=== PATIENT | female | born 1950 | race Caucasian/White ===

== ENCOUNTER 2020-12-02 10:01 | Outpatient (REF) | payer MEDICARE, SELFPAY ==
[2020-12-02 12:27] LABS: Urine Cytology See Pathology rpt
== END 2020-12-02 10:02 | disposition home or self-care (01) ==
LOC: HO.LNP 10:01
PROVIDERS: Visit Provider Urology
DX: C67.9 Malignant neoplasm of bladder, unspecified (principal)
CPT/HCPCS: 52000; 88112; 99212

== ENCOUNTER 2021-01-26 08:33 | Outpatient (REF) | payer MEDICARE, SELFPAY ==
--- NOTE | ~2021-01-26 | MM_ITS ---
EXAMINATION: BONE DENSITOMETRY CLINICAL INDICATION: Menopause. COMPARISON: Previous BD dated 12/18/2017 and baseline BD dated 03/06/2008. TECHNIQUE: Using a [employer] DXA System (software version: 13.1) manufactured by [facility] [facility], dual-energy x-ray absorptiometry was performed of the lumbar spine and left hip. The images are of good technical quality. Summary results are attached. FINDINGS: AP SPINE L1-L4: Current: BMD 0.995 g/cm2, Z-score 0.0, T-score -1.5, osteopenia, 1.5% decrease from previous, 5.6% increase from baseline (<5% change is not significant). Prior: BMD 1.010 g/cm2. Baseline: BMD 0.942 g/cm2. LEFT FEMUR, NECK: Current: BMD 0.699 g/cm2, Z-score -0.8, T-score -2.4, osteopenia. Prior: BMD 0.747 g/cm2. Baseline: BMD 0.785 g/cm2. LEFT FEMUR, TOTAL: Current: BMD 0.805 g/cm2, Z-score -0.2, T-score -1.6, osteopenia, 5.3% decrease from previous, 11.2% decrease from baseline (<5% change is not significant). Prior: BMD 0.850 g/cm2. Baseline: BMD 0.907 g/cm2. IDENTIFIED RISK FACTORS: Menopause. HISTORY OF FRACTURE: None listed. MEDICATIONS: Vitamin D. MM/XR DEXA axial skeleton IMPRESSION: 1. DIAGNOSIS: Osteopenia based on the lowest T-score value of -2.4 in the femoral neck applying World Health Organization criteria. 2. 10-YEAR FRACTURE RISK PREDICTION, FRAX: Major osteoporotic fracture (clinical spine, forearm, hip or shoulder) 14.0%. Hip fracture 3.5%. 3. Treatment Recommendations: NOF guidelines recommend consideration for treatment in postmenopausal women and men age 50 and older presenting with the following: -A hip or vertebral (clinical or morphometric) fracture. -T-score less than or equal to -2.5 at the femoral neck or spine after appropriate evaluation to exclude secondary causes. -Low bone mass at the hip or spine and a 10-year fracture probability by FRAX of greater than or equal to 3% for hip fracture or greater than or equal to 20% for major osteoporotic fracture based on the [place] adapted WHO algorithm. 4. Other Recommendations: All treatment decisions require clinical judgment and consideration of individual patient factors, including patient preferences, comorbidities, previous drug use, risk factors not captured in the FRAX model (e.g. frailty, falls, vitamin D deficiency, increased bone turnover, interval significant decline in bone density) and possible under or overestimation of fracture risk by FRAX. Additional medical evaluation for secondary cause of low bone mineral density may be appropriate. FUTURE SCAN RECOMMENDATION: People with diagnosed cases of osteoporosis or at high risk for fracture should have regular bone mineral density tests. For patients eligible for Medicare, routine testing is allowed once every 2 years. The testing frequency can be increased to one year for patients who have rapidly progressing disease, those who are receiving or discontinuing medical therapy to restore bone mass, or have additional risk factors.
--- NOTE | ~2021-01-26 | MM_ITS ---
EXAMINATION: MM SCREENING DIGITAL BREAST TOMOSYNTHESIS, BILATERAL CLINICAL INFORMATION: Screening. Asymptomatic. The lifetime risk of breast cancer based on the Tyrer-Cuzick Model is 3%. COMPARISON: Mammography: 01/12/2020, 01/03/2019, 12/18/2017 TECHNIQUE: Digital breast tomosynthesis is performed in both the craniocaudal and mediolateral oblique views along with computer-aided detection (CAD). Synthesized 2D images are generated from the tomosynthesis. FINDINGS: There are scattered areas of fibroglandular density (ACR BI-RADS breast composition Category b). There are no significant masses, abnormal calcifications, or other abnormalities. The axilla and skin contours are unremarkable. No significant changes. MM/MM tomosynthesis screening BI IMPRESSION: No mammographic evidence of malignancy. ASSESSMENT: BI-RADS 1: Negative RECOMMENDATION: Routine annual mammography screening. This patient's information was entered into a reminder system with a target due date for their next mammogram.
[2021-01-26 09:52] LABS: MANUAL DIFF FLAG NO
[2021-01-26 10:19] LABS: Estimated Average Glucose 197 mg/dL; Hemoglobin A1c % 8.5 %
[2021-01-26 10:24] LABS: Basophils Absolute Auto 0.1 X10*3/uL (0.0-0.2); Basophils Percent Auto 0.7 % (0-2); Eosinophils Absolute Auto 0.2 X10*3/uL (0.0-0.4); Eosinophils Percent Auto 2.5 % (0-4); Hematocrit 43.1 % (37-47); Hemoglobin 13.8 g/dl (12.0-16.0); Imm Gran Abs Auto 0.04 X10*3/uL (0.00-0.03); Imm Gran Pct Auto 0.4 % (0.0-0.4); Lymphocytes Percent Auto 20.6 % (20-40); Mean Corpuscular Hemoglobin 29.6 pg (27.0-33.0); Mean Corpuscular Volume 92.3 fL (80-98); Mean Platelet Volume 10.7 fL (9.4-12.3); Monocytes Absolute Auto 0.7 X10*3/uL (0.1-1.2); Monocytes Percent Auto 7.7 % (2-11); Neutrophils Absolute Auto 6.6 X10*3/uL (2.0-8.3); Neutrophils Percent Auto 68.1 % (45-73); Platelet Count 280 X10*3/uL (160-400); Red Blood Count 4.67 X10*6/uL (4.20-5.50); Red Cell Distribution Width 13.6 % (11.0-16.0); White Blood Count 9.7 X10*3/uL (4.8-10.8)
[2021-01-26 10:53] LABS: Microalbum/Creatinine Ratio Ur 9.6 ug/mg cr
[2021-01-26 11:09] LABS: Alanine Aminotransferase 15 U/L (0-31); Albumin Level 3.9 g/dL (3.5-5.0); Alkaline Phosphatase 58 U/L (39-117); Anion Gap 11 (12-20); Aspartate Amino Transferase 16 U/L (5-31); Bilirubin Total 0.5 mg/dL (0.0-1.0); Blood Urea Nitrogen 14 mg/dL (9-16); Calcium 9.3 mg/dL (8.4-10.2); Carbon Dioxide 28 mmol/L (22-29); Chloride 104 mmol/L (96-108); Cholesterol 167 mg/dL; Estimated Glomerular Filt Rate > 60; Glucose Random 220 mg/dL (60-115); HDL Cholesterol 56 mg/dL; LDL Cholesterol Calculated 102 mg/dl; Potassium 4.3 mmol/L (3.3-5.1); Sodium 139 mmol/L (135-145); Total Protein 7.2 g/dL (6.5-8.0); Triglycerides 49 mg/dL
[2021-01-26 11:13] LABS: Vitamin D 25-OH Total 44.3 ng/mL (>30)
== END 2021-01-26 08:34 | disposition home or self-care (01) ==
LOC: HO.MAMMO 08:33
PROVIDERS: PCP Internal Medicine; Visit Provider Internal Medicine
DX: M81.0 Age-related osteoporosis without current pathological fracture (principal); Z78.0 Asymptomatic menopausal state; Z12.31 Encounter for screening mammogram for malignant neoplasm of breast; I10 Essential (primary) hypertension; E11.9 Type 2 diabetes mellitus without complications
CPT/HCPCS: 36415; 77063; 77067; 77080; 80053; 80061; 82043; 82306; 83036; 85025

== ENCOUNTER 2021-03-16 11:27 | Outpatient (REF) | payer MEDICARE, SELFPAY ==
--- NOTE | ~2021-03-16 | XR_ITS ---
EXAMINATION: XR HIP, LEFT CLINICAL INFORMATION: Left hip pain. Question presence of osteoarthritis. COMPARISON: None TECHNIQUE: Two views of the left hip. FINDINGS: The left-sided pelvic bones are intact. The left femoral head is well-positioned within the intact acetabulum. The hip joint space is normal. No arthritic deformity. No fracture or subluxation. Soft tissues are unremarkable. Small osteophytes are noted at the mildly degenerated pubic symphysis and inferior left sacroiliac joint. XR/XR hip LT min 2V IMPRESSION: * Normal left hip. 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
== END 2021-03-16 11:28 | disposition home or self-care (01) ==
LOC: HO.XRAY 11:27
PROVIDERS: PCP Internal Medicine; Visit Provider Internal Medicine
DX: M25.552 Pain in left hip (principal)
CPT/HCPCS: 73502

== ENCOUNTER 2021-07-13 11:10 | Outpatient (REF) | payer MEDICARE, SELFPAY ==
[2021-07-13 14:13] LABS: Estimated Average Glucose 192 mg/dL; Hemoglobin A1c % 8.3 %
[2021-07-13 14:17] LABS: Anion Gap 12 (12-20); Blood Urea Nitrogen 18 mg/dL (9-16); Carbon Dioxide 29 mmol/L (22-29); Chloride 100 mmol/L (96-108); Creatinine Urine 114.05 mg/dL; Estimated Glomerular Filt Rate > 60; Glucose Random 316 mg/dL (60-115); Microalbum/Creatinine Ratio Ur 6.1 ug/mg cr; Potassium 4.4 mmol/L (3.3-5.1); Sodium 137 mmol/L (135-145)
[2021-07-13 14:19] LABS: Calcium 9.8 mg/dL (8.4-10.2)
== END 2021-07-13 11:11 | disposition home or self-care (01) ==
LOC: HO.10HDL 11:10
PROVIDERS: PCP Internal Medicine; Visit Provider Internal Medicine
DX: I10 Essential (primary) hypertension (principal); E11.9 Type 2 diabetes mellitus without complications
CPT/HCPCS: 36415; 80048; 82043; 83036

== ENCOUNTER 2021-07-26 10:28 | Outpatient (REF) | payer MEDICARE, SELFPAY ==
--- NOTE | 2021-07-26 13:56 | MHC.AU.ANR ---
Adult Audiological Evaluation Date of Visit: 07/26/21 Reason for Appointment: Varsha was seen for an audiological evaluation to address concerns of decreased hearing. Varsha states she came today due to complaints from her children stating she needed her hearing checked. Varsha feels she hears well, but does note a bilateral, constant tinnitus that is more noticeable in quiet environments. Varsha notes having difficulties hearing one of her grandchildren, who talks fast, and having difficulties hearing only one character on her favorite TV show. Does patient feel they have a hearing loss?: No Hearing Handicap Inventory: HHIE SCORE: 4 Based on HHIE score, patient has: No perceived hearing handicap Ear History: Family History of Hearing Loss?: Yes: Father wore hearing aids Bothersome Tinnitus/Ringing/Noises in Ears: Both Ears Ear used on the phone: Right Ear Medical History: Medical History: Cancer, Diabetes, Heart Problems, High Blood Pressure Medical History (Other): History of bladder cancer which was surgically treated and monitored regularly. Rheumatic fever at 7 years old. Asthma. Allergies: NKA Medication List: Glupizide, Lisinopril, lovastatin, buclesonide with formoterol, vitamin D, Advil, Plexus Otoscopy: Right Ear: Unremarkable Left Ear: Unremarkable Tympanometry: Tympanometry performed due to: To assess integrity of the middle ear system Right Ear: Normal Middle Ear System (Type A) Left Ear: Normal Middle Ear System (Type A) Hearing Evaluation: Transducer(s) Used: Insert Earphones, Bone Conduction Method: Conventional Audiometry Stimuli Used: Pure Tones Right Ear: Description of Hearing: Normal hearing threshold at 250 Hz sloping to a mild sensorineural hearing loss through 2000 Hz, rising to normal at 3000 Hz, sloping back down to a moderately severe sensorineural hearing loss through 8000 Hz. Left Ear: Description of Hearing: Normal hearing thresholds at 250 Hz sloping to a mild sensorineural hearing loss through 1000 Hz, rising to normal from 3062-8135 Hz, sloping back down to a moderately severe sensorineural hearing loss through 8000 Hz. Speech Recognition Threshold (SRT): Method Used: Monitored Live Voice Stimuli Used: Spondee Words Right Ear: 30 dB HL Left Ear: 30 dB HL Word Discrimination: Method: Recorded Lists Word Lists Used: NU-6 Right Ear: 100% at 75 dB HL Left Ear: 100% at 75 dB HL Interpretation of Results: Overall mild to moderately severe sensorineural hearing loss with excellent word recognition when presented at a level to compensate for the hearing loss. Normal middle ear status. Hearing loss of this degree would most likely impact her ability to understand speech in the presence of background noise, speech at a distance, or when she cannot visualize a speaker's face. Recommendations: Audiological re-evaluation in one year. Trial with amplification is recommended. Patient does not feel they are ready for amplification at this time. Due to the significant, bilateral hearing loss, it is recommended that Varsha pursue hearing devices. Counseled on the benefits of hearing aids, including, hearing her grandchildren more clearly and a possible reduction in tinnitus while wearing the devices. Discussed possible diet and environmental modifications to manage tinnitus as well. If Varsha decides to pursue amplification, she should call her insurance to determine if a hearing aid benefit is available to her. At this time, Varsha stated she will not be pursing amplification due to lack of perceived difficulties surrounding her hearing abilities. Recommended to return in one year to monitor the status of her hearing loss. Diagnosis: Primary Diagnosis: H90.3 Bilateral Sensorineural Hearing Loss Secondary Diagnosis: H93.13 Tinnitus, Bilateral Services Performed: Services Performed: Comprehensive Audiological Evaluation (CPT 09899) Tympanometry (CPT 96221) Signature: Student/Clinical Fellow: Yes: Marla Robins B.A., [employer] I have reviewed/agreed with student/fellow documentation: Yes Provider: Toya Hebert, [facility]
== END 2021-07-26 10:29 | disposition home or self-care (01) ==
LOC: HO.SH 10:28
PROVIDERS: Visit Provider Internal Medicine
DX: Z01.118 Encounter for examination of ears and hearing with other abnormal findings (principal); H90.3 Sensorineural hearing loss, bilateral
CPT/HCPCS: 92557; 92567

== ENCOUNTER 2021-10-12 11:04 | Outpatient (REF) | payer MEDICARE, SELFPAY ==
[2021-10-12 14:11] LABS: Anion Gap 11 (12-20); Blood Urea Nitrogen 24 mg/dL (9-16); Calcium 9.5 mg/dL (8.4-10.2); Carbon Dioxide 28 mmol/L (22-29); Chloride 101 mmol/L (96-108); Estimated Glomerular Filt Rate 59; Glucose Random 215 mg/dL (60-115); Potassium 4.6 mmol/L (3.3-5.1); Sodium 135 mmol/L (135-145)
[2021-10-12 14:39] LABS: Estimated Average Glucose 197 mg/dL; Hemoglobin A1c % 8.5 %
== END 2021-10-12 11:05 | disposition home or self-care (01) ==
LOC: HO.10HDL 11:04
PROVIDERS: Visit Provider Internal Medicine
DX: E11.9 Type 2 diabetes mellitus without complications (principal); I10 Essential (primary) hypertension
CPT/HCPCS: 36415; 80048; 83036

== ENCOUNTER 2021-12-02 10:02 | Outpatient (REF) | payer MEDICARE, SELFPAY ==
[2021-12-02 15:58] LABS: Urine Cytology See Pathology rpt
== END 2021-12-02 10:03 | disposition home or self-care (01) ==
LOC: HO.LAB 10:02
PROVIDERS: Visit Provider Urology
DX: C67.9 Malignant neoplasm of bladder, unspecified (principal)
CPT/HCPCS: 52000; 88112; 99212

== ENCOUNTER 2022-01-27 09:41 | Outpatient (REF) | payer MEDICARE, SELFPAY ==
[2022-01-27 10:53] LABS: MANUAL DIFF FLAG NO
[2022-01-27 10:55] LABS: Basophils Absolute Auto 0.1 X10*3/uL (0.0-0.2); Eosinophils Absolute Auto 0.3 X10*3/uL (0.0-0.4); Eosinophils Percent Auto 3.8 % (0-4); Hematocrit 41.8 % (37.0-47.0); Hemoglobin 13.6 g/dl (12.0-16.0); Imm Gran Abs Auto 0.02 X10*3/uL (0.00-0.03); Imm Gran Pct Auto 0.3 % (0.0-0.4); Lymphocytes Absolute Auto 2.1 X10*3/uL (1.2-4.9); Lymphocytes Percent Auto 29.8 % (20-40); Mean Corpuscular HGB Conc 32.5 g/dl (31.0-35.0); Mean Corpuscular Hemoglobin 30.1 pg (27.0-33.0); Mean Corpuscular Volume 92.5 fL (80.0-98.0); Mean Platelet Volume 10.4 fL (9.4-12.3); Monocytes Absolute Auto 0.7 X10*3/uL (0.1-1.2); Monocytes Percent Auto 9.5 % (2-11); Neutrophils Percent Auto 55.6 % (45-73); Platelet Count 273 X10*3/uL (160-400); Red Blood Count 4.52 X10*6/uL (4.20-5.50); Red Cell Distribution Width 14.4 % (11.0-16.0); White Blood Count 7.2 X10*3/uL (4.8-10.8)
[2022-01-27 11:03] LABS: Alanine Aminotransferase 19 U/L (0-31); Alkaline Phosphatase 53 U/L (39-117); Anion Gap 15 (12-20); Aspartate Amino Transferase 19 U/L (5-31); Bilirubin Total 0.5 mg/dL (0.0-1.0); Blood Urea Nitrogen 15 mg/dL (9-16); Calcium 9.4 mg/dL (8.4-10.2); Carbon Dioxide 26 mmol/L (22-29); Chloride 102 mmol/L (96-108); Cholesterol 160 mg/dL; Estimated Glomerular Filt Rate > 60; Glucose Fasting 227 mg/dL (60-99); HDL Cholesterol 55 mg/dL; LDL Cholesterol Calculated 91 mg/dl; Potassium 4.1 mmol/L (3.3-5.1); Sodium 139 mmol/L (135-145); Total Protein 7.2 g/dL (6.5-8.0); Triglycerides 71 mg/dL
[2022-01-27 11:08] LABS: Estimated Average Glucose 194 mg/dL; Hemoglobin A1c % 8.4 %
[2022-01-27 11:48] LABS: Creatinine Urine 217.14 mg/dL; Microalbum/Creatinine Ratio Ur 8.7 ug/mg cr
== END 2022-01-27 09:42 | disposition home or self-care (01) ==
LOC: HO.10HDL 09:41
PROVIDERS: Visit Provider Internal Medicine
DX: E11.9 Type 2 diabetes mellitus without complications (principal); I10 Essential (primary) hypertension; E78.00 Pure hypercholesterolemia, unspecified
CPT/HCPCS: 36415; 80053; 80061; 82043; 83036; 85025

== ENCOUNTER 2022-01-27 10:18 | Outpatient (REF) | payer MEDICARE, SELFPAY ==
--- NOTE | ~2022-01-27 | MM_ITS ---
EXAMINATION: MM SCREENING DIGITAL BREAST TOMOSYNTHESIS, BILATERAL CLINICAL INFORMATION: Screening. Asymptomatic. The lifetime risk of breast cancer based on the Tyrer-Cuzick Model is 3%. COMPARISON: Mammography: 01/26/2021, 01/12/2020, 01/03/2019 TECHNIQUE: Digital breast tomosynthesis is performed in both the craniocaudal and mediolateral oblique views along with computer-aided detection (CAD). Synthesized 2D images are generated from the tomosynthesis. FINDINGS: There are scattered areas of fibroglandular density (ACR BI-RADS breast composition Category b). There are no significant masses, abnormal calcifications, or other abnormalities. Parenchymal pattern is similar to prior studies. There is no developing density or architectural abnormality. The axilla and skin contours are unremarkable. No significant changes. MM/MM tomosynthesis screening BI IMPRESSION: No mammographic evidence of malignancy. ASSESSMENT: BI-RADS 1: Negative RECOMMENDATION: Routine annual mammography screening. This patient's information was entered into a reminder system with a target due date for their next mammogram.
== END 2022-01-27 10:19 | disposition home or self-care (01) ==
LOC: HO.MAMMO 10:18
PROVIDERS: PCP Internal Medicine; Visit Provider Internal Medicine
DX: Z12.31 Encounter for screening mammogram for malignant neoplasm of breast (principal)
CPT/HCPCS: 77063; 77067

== ENCOUNTER 2022-05-10 11:19 | Outpatient (REF) | payer MEDICARE, SELFPAY ==
[2022-05-10 14:33] LABS: Anion Gap 13 (12-20); Blood Urea Nitrogen 20 mg/dL (9-16); Calcium 9.7 mg/dL (8.4-10.2); Carbon Dioxide 29 mmol/L (22-29); Chloride 99 mmol/L (96-108); Estimated Glomerular Filt Rate > 60; Glucose Random 240 mg/dL (60-115); Potassium 4.4 mmol/L (3.3-5.1); Sodium 137 mmol/L (135-145)
[2022-05-10 14:36] LABS: Estimated Average Glucose 197 mg/dL; Hemoglobin A1c % 8.5 %
== END 2022-05-10 11:20 | disposition home or self-care (01) ==
LOC: HO.10HDL 11:19
PROVIDERS: Visit Provider Internal Medicine
DX: E11.9 Type 2 diabetes mellitus without complications (principal); I10 Essential (primary) hypertension
CPT/HCPCS: 36415; 80048; 83036

== ENCOUNTER 2022-08-09 12:16 | Outpatient (REF) | payer MEDICARE, SELFPAY ==
[2022-08-09 14:37] LABS: Anion Gap 11 (12-20); Blood Urea Nitrogen 16 mg/dL (9-16); Calcium 9.4 mg/dL (8.4-10.2); Carbon Dioxide 28 mmol/L (22-29); Chloride 103 mmol/L (96-108); Estimated Glomerular Filt Rate > 60; Glucose Random 228 mg/dL (60-115); Potassium 4.4 mmol/L (3.3-5.1); Sodium 138 mmol/L (135-145)
[2022-08-09 14:41] LABS: Estimated Average Glucose 249 mg/dL; Hemoglobin A1c % 10.3 %
== END 2022-08-09 12:17 | disposition home or self-care (01) ==
LOC: HO.10HDL 12:16
PROVIDERS: Visit Provider Internal Medicine
DX: E11.9 Type 2 diabetes mellitus without complications (principal); I10 Essential (primary) hypertension
CPT/HCPCS: 36415; 80048; 83036

== ENCOUNTER 2022-11-22 10:51 | Outpatient (REF) | payer MEDICARE, SELFPAY ==
[2022-11-22 13:51] LABS: Estimated Average Glucose 183 mg/dL
[2022-11-22 13:59] LABS: Alanine Aminotransferase 15 U/L (0-31); Alkaline Phosphatase 56 U/L (39-117); Anion Gap 11 (12-20); Aspartate Amino Transferase 18 U/L (5-31); Bilirubin Total 0.5 mg/dL (0.0-1.0); Blood Urea Nitrogen 23 mg/dL (9-16); Calcium 9.8 mg/dL (8.4-10.2); Carbon Dioxide 31 mmol/L (22-29); Chloride 101 mmol/L (96-108); Estimated Glomerular Filt Rate > 60; Glucose Random 213 mg/dL (60-115); Potassium 4.3 mmol/L (3.3-5.1); Sodium 139 mmol/L (135-145)
== END 2022-11-22 10:52 | disposition home or self-care (01) ==
LOC: HO.10HDL 10:51
PROVIDERS: Visit Provider Internal Medicine
DX: E11.9 Type 2 diabetes mellitus without complications (principal); I10 Essential (primary) hypertension; J45.909 Unspecified asthma, uncomplicated
CPT/HCPCS: 36415; 80053; 83036

== ENCOUNTER 2022-12-05 10:10 | Outpatient (REF) | payer MEDICARE, SELFPAY ==
[2022-12-05 17:08] LABS: Urine Cytology See Pathology rpt
== END 2022-12-05 10:11 | disposition home or self-care (01) ==
LOC: HO.LAB 10:10
PROVIDERS: Visit Provider Urology
DX: C67.9 Malignant neoplasm of bladder, unspecified (principal); R35.1 Nocturia; N32.81 Overactive bladder
CPT/HCPCS: 52000; 88112; 99212

== ENCOUNTER 2022-12-05 10:10 | Outpatient (AMB) | payer MEDICARE, SELFPAY ==
--- NOTE | 2022-12-05 10:13 | A.OFFVIS_ITS ---
Intake Intake Visit Reasons: 1 year follow up Cysto Intake Note: Patient is present for Cystoscopy Urology Med: None Antibiotic Allergy: None Blood Thinner: None [facility]acy: [facility] C[facility] used during Procedure LOT#: [id number] EXP: 09/01/2024 Allergies No Known Allergies Allergy (Verified 12/05/22 10:15) HPI HPI Comments History of Present Illness Details Varsha is a pleasant female. She is here for the following urologic conditions - bladder cancer - lower urinary tract symptoms Cystoscopy clear 12 month follow-up Lower urinary tract symptoms Predominate urinary urgency Background of diabetes Nocturia times 3-4 Trial oxybutynin Bladder cancer superficial Diagnosed a number of years ago Continues with yearly surveillance Background with diabetic diagnosis on glipizide Cystoscopy - 12/18 NAD, 12/19 NAD, 12/20 NAD Continue with surveillance yearly [facility] Medical History (Updated 12/05/22 @ 11:05 by Forest Clark MD) Asthma Diabetes mellitus HTN (hypertension) Surgical History (Updated 12/05/22 @ 10:18 by DOROTA Null) Status post surgical removal and fulguration of bladder neoplasm Review of Systems Const Denies chills and Denies fever(s) Card Reports no additional complaints and Denies syncope Resp Denies cough GI Denies abdominal pain and Denies heartburn Reports as per HPI and Denies change in libido Neuro Denies syncope Psych Denies change in libido Endo Denies change in libido Physical Exam Const General: cooperative, healthy appearing, comfortable and no acute distress Orientation/consciousness: patient oriented x3 HEENT Face and sinus: Yes normal facial exam Mouth: moist mucous membranes Neck Neck: Yes normal visual inspection, Yes full ROM and Yes trachea midline Chest Chest palpation & inspection: normal inspection of the chest Resp Effort & Inspection: normal respiratory effort, able to speak in complete sentences and no respiratory distress GI Inspection: Yes normal to inspection Back/Spine/Pelvis Cervical Spine: normal cervical lordosis Thoracic/Lumbar Spine: thoracic and lumbar spine normal to inspection Skin General skin exam: no rashes or lesions noted Neuro General: patient oriented x3, gait normal, tone normal and moves all extremities Extrem General: Yes normal to inspection and Yes capillary refill normal Office Procedures Cystoscopy Consent Discussed risk and benefit or proposed procedure with the patient. Information consent for procedure given to the patient. Discussed technical aspects, risks, benefits and alternatives in full. Addressed all of the patient's questions and concerns regarding the procedure. The patient demonstrated knowledge and understanding. They wish to proceed with this procedure. Preparation The patient was prepped in the usual manner. A wood carving lathe operator was present and in the room. Genitalia was prepped with betadine solution in a sterile manner. Lidocaine Jelly 2% was placed into the urethra and 16Fr flexible Olympus cystoscope was inserted into the meatus after adequate lubrication. Procedure Meatus atrophic Urethra normal Bladder examination with retroflexion of cystoscope Bladder Orifices normal shape and position Trigone normal Bladder Capacity medium Trabeculations grade 1 Cellule Formation - Diverticulum Formation - Mucosal Erythema - Bladder Tumor - 98580-[id number] Procedure code (CPT) selection complete Office Meds lidocaine HCl Performing Provider: Forest Clark MD Administered by: Charis Raygoza RN on 12/05/22 10:40 Dose Route Admin Location Lot Number Expiration Date [facility] Pastry Mixer 10 mL intra-urethral nitrofurantoin monohyd/m-cryst 100 mg Performing Provider: Forest Clark MD Administered by: Charis Raygoza RN on 12/05/22 10:40 Dose Route Admin Location Lot Number Expiration Date [facility] Pastry Mixer 100 mg PO Results AMB Urinalysis, Automated UA Leukoctes 0 Reena/uL Last Edit by DOROTA Null on 12/05/22 10:22 UA Nitrite Negative Last Edit by Marla Casanova [facility] on 12/05/22 10:22 UA Urobilinogen 0.2 mg/dL Last Edit by Marla Casanova [facility] on 12/05/22 10:2 2 UA Protein 15 mg/dL Last Edit by Marla Casanova [facility] on 12/05/22 10:22 UA pH 6.0 Last Edit by Marla Casanova [facility] on 12/05/22 10:22 UA Blood 0 Ric/uL Last Edit by Marla Casanova [facility] on 12/05/22 10:22 UA Specific [place] 1.030 Last Edit by Marla Casanova [facility] on 12/05/22 10: 22 UA Ketone Negative Last Edit by Marla Casanova [facility] on 12/05/22 10:22 UA Bilirubin 0 mg/dL Last Edit by Marla Casanova [facility] on 12/05/22 10:22 UA Glucose 0 mg/dL Last Edit by DOROTA Null on 12/05/22 10:22 Results Reviewed Results Reviewed: Laboratory Last Values Urine pH (Auto) 6.0 12/05/22 10:18 Specific [place] (Auto) 1.030 12/05/22 10:18 Urine Protein (Auto) 15 mg/dL 12/05/22 10:18 Glucose (UA)(Auto) 0 mg/dL 12/05/22 10:18 Urine Ketones (Auto) Negative 12/05/22 10:18 Urine Blood (Auto) 0 Ric/uL 12/05/22 10:18 Urine Nitrite (Auto) Negative 12/05/22 10:18 Urine Bilirubin (Auto) 0 mg/dL 12/05/22 10:18 Urine Urobilinogen (Auto) 0.2 mg/dL 12/05/22 10:18 Leukocyte Esterase (Auto) 0 Reena/uL 12/05/22 10:18 Assessment & Plan Assessment & Plan (1) Bladder cancer: Comment: Low-grade Code(s): C67.9 - Malignant neoplasm of bladder, unspecified (2) Overactive bladder: Code(s): N32.81 - Overactive bladder Orders: Orders Urine Cytology Today C67.9 - Malignant neoplasm of bladder, unspecified AMB Cystoscopy Today C67.9 - Malignant neoplasm of bladder, unspecified AMB Urinalysis Automated Today Z13.9 - Encounter for screening, unspecified Medications: New oxybutynin chloride ER 5 mg PO DAILY 30 days 30 tabs 1RF C67.9 - Malignant neoplasm of bladder, unspecified Coding Level of Care Code Est Pt Level 4 (32668) Diagnoses Bladder cancer C67.9 Overactive bladder N32.81 CPT Codes Cystoscopy - CPT: 59969-[facility] ([id number])
== END 2022-12-05 11:03 | disposition home or self-care (01) ==
PROVIDERS: Visit Provider Urology
DX: C67.9 Malignant neoplasm of bladder, unspecified (principal); N32.81 Overactive bladder
CPT/HCPCS: 52000; 99214

== ENCOUNTER 2022-12-26 13:43 | Outpatient (REF) | payer MEDICARE, SELFPAY | END 2022-12-26 13:44 | disposition home or self-care (01) | LOC: HO.SH 13:43 | PROVIDERS: Visit Provider Internal Medicine | DX: Z01.118 Encounter for examination of ears and hearing with other abnormal findings (principal); H90.3 Sensorineural hearing loss, bilateral | CPT/HCPCS: 92557 ==

== ENCOUNTER 2023-01-10 13:31 | Outpatient (REF) | payer MEDICARE, SELFPAY ==
--- NOTE | ~2023-01-10 | XR_ITS ---
EXAMINATION: XR KNEE, RIGHT CLINICAL INFORMATION: Pain. COMPARISON: None available. TECHNIQUE: AP, lateral and sunrise views of the right knee are submitted. FINDINGS: No fracture or joint effusion. Alignment is anatomic. Joint spaces are maintained. There is mild atherosclerotic calcification. XR/XR knee RT 3V IMPRESSION: Normal right knee.
== END 2023-01-10 13:32 | disposition home or self-care (01) ==
LOC: HO.XRAY 13:31
PROVIDERS: PCP Internal Medicine; Visit Provider Internal Medicine
DX: M25.561 Pain in right knee (principal)
CPT/HCPCS: 73562

== ENCOUNTER → 2023-02-02 10:45 | Outpatient (BNV) | payer MEDICARE, SELFPAY | PROVIDERS: PCP Internal Medicine; Visit Provider Radiology Diagnostic Radiology | DX: Z12.31 Encounter for screening mammogram for malignant neoplasm of breast (principal) | CPT/HCPCS: 77063; 77067 ==

== ENCOUNTER 2023-02-02 10:52 | Outpatient (REF) | payer MEDICARE, SELFPAY ==
--- NOTE | ~2023-02-02 | MM_ITS ---
EXAMINATION: MM SCREENING DIGITAL BREAST TOMOSYNTHESIS, BILATERAL CLINICAL INFORMATION: Screening. Asymptomatic. COMPARISON: Mammography: This study is compared with prior exams dating back to 2016. TECHNIQUE: Digital breast tomosynthesis is performed in both the craniocaudal and mediolateral oblique views along with computer-aided detection (CAD). Synthesized 2D images are generated from the tomosynthesis. FINDINGS: There are scattered areas of fibroglandular density (ACR BI-RADS breast composition Category b). There are no significant masses, abnormal calcifications, or other abnormalities. MM/MM tomosynthesis screening BI IMPRESSION: No mammographic evidence of malignancy. ASSESSMENT: BI-RADS BI-RADS 1 - Negative RECOMMENDATION: Routine annual mammography screening. 1 year F/U This examination should not preclude the clinical evaluation of a suspicious palpable abnormality. This patient's information was entered into a reminder system with a target due date for their next mammogram.
== END 2023-02-02 10:53 | disposition home or self-care (01) ==
LOC: HO.MAMMO 10:52
PROVIDERS: PCP Internal Medicine; Visit Provider Internal Medicine
DX: Z12.31 Encounter for screening mammogram for malignant neoplasm of breast (principal)
CPT/HCPCS: 77063; 77067

== ENCOUNTER 2023-02-15 08:49 | Outpatient (AMB) | payer MEDICARE, SELFPAY ==
--- NOTE | 2023-02-15 09:03 | A.OFFVIS_ITS ---
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 States pain her knee and swelling started about 2 months ago, she thought it would get better on its own. Seen with her PCP Dr. Lnido who referred patient for an orthopedic evaluation. Denies recent injury, knee giving out,injection, surgery, numbness or tingling. Patient states that she has been doing gentle stretching exercises which gave her fairly good relief. She denies any locking or giving way. Allergies No Known Allergies Allergy (Verified 02/15/23 09:07) Medication List - Last Reconciled 02/15/23 by Juan Carlos Pollack MD blood sugar diagnostic ([employer] InternationalTouch Ultra Test strips) As directed budesonide-formoterol 160-4.5 mcg/actuation 2 puffs PO QAM glipizide 10 mg PO BID hydrocodone-acetaminophen 5-325 mg 1 - 2 tabs PO Q6H PRN lancets (OneTouch Delica Plus Lancet) As directed lancets (OneTouch UltraSoft Lancets) As directed lisinopril 5 mg PO DAILY lovastatin 10 mg PO DAILY PFSH Medical History (Updated 02/15/23 @ 09:23 by Juan Carlos Pollack MD) HTN (hypertension) Diabetes mellitus Asthma Surgical History (Updated 12/05/22 @ 10:18 by Marla Casanova [facility]) Status post surgical removal and fulguration of bladder neoplasm Social History (Updated 02/15/23 @ 09:08 by Aileen Koch [facility]) Current occupational status: retired Physical Exam Vital Signs: BMI result Body Mass Index 39.7 Const Other: Well-nourished well-developed very friendly female awake alert and oriented x3 in no acute distress Extrem Other: Bilateral lower extremity examination shows good capillary refill, no skin lesions noted, normal sensation light touch Right knee examination shows a minimal effusion, minimal crepitus with range of motion, negative Randolph test, no instability Results Reviewed Results Reviewed: X-rays of the patient's right knee show mild diffuse joint space narrowing, no acute bony abnormalities Assessment & Plan Assessment & Plan (1) Right knee pain: Code(s): M25.561 - Pain in right knee Plan: Ms. Miller presents with right knee pain due to early degenerative joint disease. I had a lengthy discussion with the patient regarding the treatment options. At this point the patient appears to be improving with her home stretching program. Activity modifications were discussed at length with the patient. We will hold off on a cortisone injection. She will follow-up with me on an as-needed basis should her symptoms worsen in any way. Feel free to call me at any time should questions regarding her orthopedic management arise. Thank you very much for asking me to see this very friendly patient. I spent 22 minutes in reviewing the patient's records and imaging studies, seeing the patient and documenting in the medical record. Coding Level of Care Code New Pt Level 2 (43762) Diagnoses Right knee pain M25.561
[2023-02-15 09:07] VITALS: BMI 39.7
== END 2023-02-15 09:18 | disposition home or self-care (01) ==
PROVIDERS: PCP Internal Medicine; Visit Provider Orthopaedic Surgery
DX: M25.561 Pain in right knee (principal)
CPT/HCPCS: 99202

== ENCOUNTER 2023-02-15 09:21 | Outpatient (REF) | payer MEDICARE, SELFPAY ==
[2023-02-15 10:44] LABS: MANUAL DIFF FLAG NO
[2023-02-15 10:54] LABS: Basophils Absolute Auto 0.1 X10*3/uL (0.0-0.2); Basophils Percent Auto 1.3 % (0-2); Eosinophils Absolute Auto 0.2 X10*3/uL (0.0-0.4); Eosinophils Percent Auto 3.1 % (0-4); Hematocrit 41.1 % (37.0-47.0); Hemoglobin 13.5 g/dl (12.0-16.0); Imm Gran Abs Auto 0.02 X10*3/uL (0.00-0.03); Imm Gran Pct Auto 0.3 % (0.0-0.4); Lymphocytes Absolute Auto 2.1 X10*3/uL (1.2-4.9); Lymphocytes Percent Auto 29.7 % (20-40); Mean Corpuscular HGB Conc 32.8 g/dl (31.0-35.0); Mean Corpuscular Hemoglobin 30.3 pg (27.0-33.0); Mean Corpuscular Volume 92.2 fL (80.0-98.0); Mean Platelet Volume 10.7 fL (9.4-12.3); Monocytes Absolute Auto 0.6 X10*3/uL (0.1-1.2); Monocytes Percent Auto 8.5 % (2-11); Neutrophils Absolute Auto 4.1 x10*3/uL (2.0-8.3); Neutrophils Percent Auto 57.1 % (45-73); Platelet Count 260 X10*3/uL (160-400); Red Blood Count 4.46 X10*6/uL (4.20-5.50); Red Cell Distribution Width 13.4 % (11.0-16.0); White Blood Count 7.2 X10*3/uL (4.8-10.8)
[2023-02-15 10:59] LABS: Estimated Average Glucose 169 mg/dL; Hemoglobin A1c % 7.5 % (<6.0)
[2023-02-15 11:12] LABS: Alanine Aminotransferase 16 U/L (0-31); Albumin Level 3.9 g/dL (3.5-5.0); Alkaline Phosphatase 48 U/L (39-117); Anion Gap 12 (12-20); Aspartate Amino Transferase 20 U/L (5-31); Bilirubin Total 0.5 mg/dL (0.0-1.0); Blood Urea Nitrogen 19 mg/dL (9-16); Calcium 9.5 mg/dL (8.4-10.2); Carbon Dioxide 26 mmol/L (22-29); Chloride 104 mmol/L (96-108); Cholesterol 166 mg/dL (<200); Estimated Glomerular Filt Rate > 60; Glucose Fasting 197 mg/dL (60-99); HDL Cholesterol 56 mg/dL (>40); LDL Cholesterol Calculated 99 mg/dL (<100); Potassium 4.1 mmol/L (3.3-5.1); Sodium 138 mmol/L (135-145); Total Protein 7.7 g/dL (6.5-8.0); Triglycerides 56 mg/dL (<150)
[2023-02-15 13:29] LABS: Creatinine Urine 210.79 mg/dL; Microalbum/Creatinine Ratio Ur 5.2 ug/mg cr (<30)
== END 2023-02-15 09:22 | disposition home or self-care (01) ==
LOC: HO.10HDL 09:21
PROVIDERS: Visit Provider Internal Medicine
DX: Z13.89 Encounter for screening for other disorder (principal)
CPT/HCPCS: 36415; 80053; 80061; 82043; 82570; 83036; 85025

== ENCOUNTER → 2023-02-15 | Outpatient (BNVA) | payer MEDICARE, SELFPAY | PROVIDERS: PCP Internal Medicine; Visit Provider Orthopaedic Surgery | DX: M25.561 Pain in right knee (principal) | CPT/HCPCS: 36415; 80053; 80061; 82043; 82570; 83036; 85025; 99202 ==

== ENCOUNTER 2023-02-16 08:55 | Outpatient (AMB) | payer MEDICARE, SELFPAY ==
--- NOTE | 2023-02-16 08:55 | A.OFFVIS_ITS ---
Intake Intake Visit Reasons: 2m follow up Intake Note: Patient is Present for Telephone Follow Up Urology Med: None Antibiotic Allergy: None Blood Thinner: None Pharamcy: [employer] Allergies No Known Allergies Allergy (Verified 02/16/23 09:00) HPI HPI Comments History of Present Illness Details Varsha is a pleasant female. She is here for the following urologic conditions - bladder cancer - lower urinary tract symptoms Telemedicine Evaluation 15 min Consultation Doximity Ana Video attempted Twelve month follow-up HbA1c 7.5 Lower urinary tract symptoms Predominate urinary urgency Background of diabetes Nocturia times 1-2, occasional 3 Trial oxybutynin Bladder cancer superficial Diagnosed a number of years ago Continues with yearly surveillance Background with diabetic diagnosis on glipizide, metformin Cystoscopy - 12/18 NAD, 12/19 NAD, 12/20 NAD Continue with surveillance yearly [facility] Medical History (Updated 02/16/23 @ 09:48 by Forest Clark MD) HTN (hypertension) Diabetes mellitus Asthma Surgical History (Updated 12/05/22 @ 10:18 by Marla Casanova [facility]) Status post surgical removal and fulguration of bladder neoplasm Social History (Updated 02/15/23 @ 09:08 by Aileen Koch [facility]) Current occupational status: retired Review of Systems Const All systems reviewed & are unremarkable except as noted in HPI and below Reports no additional complaints Resp Reports no additional complaints GI Reports no additional complaints Reports as per HPI Musc Reports no additional complaints Physical Exam Telemedicine evaluation Appropriate responses Regular breathing rate and rhythm HEENT Head: Yes normal to inspection Ears: hearing grossly normal bilaterally Eyes General: appearance normal, both eyes and all related structures Neck Neck: Yes normal visual inspection Chest Chest palpation & inspection: normal inspection of the chest Resp Effort & Inspection: normal respiratory effort and able to speak in complete sentences Assessment & Plan Assessment & Plan (1) Bladder cancer: Comment: Low-grade Code(s): C67.9 - Malignant neoplasm of bladder, unspecified Qualifiers: Bladder location: unspecified site Qualified Code(s): C67.9 - Malignant neoplasm of bladder, unspecified (2) Overactive bladder: Code(s): N32.81 - Overactive bladder Plan Trial tolterodine 6 month follow-up Medications: New tolterodine ER 4 mg PO DAILY 90 caps 1RF 90 days Patient Instructions: Imaging studies, laboratory and physical exam results were discussed and reviewed in detail. No major barriers to patient understanding were identified. An opportunity to ask questions regarding the treatment plan was provided. All questions were answered. The patient expressed understanding and agreement with the above treatment plan. The patient is aware they should contact our office by phone for worsening of their current condition or the appearance of new urologic symptoms. Compliance is encouraged with any medications and followup testing that is ordered. It is a privilege to participate in the urologic care of your patient. If you have any questions or concerns regarding treatment for the above conditions, or other urologic issues, please do not hesitate to contact me. The office telephone contact is [phone]. This note is constructed using voice recognition software. While every effort has been made to ensure accuracy hiv nurse errors may have been included. Yours sincerely, Dr Forest Clark MD, [facility] - Urology Providers of Expert, Compassionate Care for the Genitourinary System Telehealth Telehealth Location of provider rendering services: practice address Location of patient: address on file Patient Identification confirmed using: Name, : Yes Telehealth method: video Patient verbally consented to treatment: Yes Patient verbally consented to billing insurance company: Yes Patient informed of any privacy concerns related to visit: Yes Coding Level of Care Code Tele Est Pt Level 4 (22056) Diagnoses Malignant neoplasm of urinary bladder, unspecified site C67.9 Bladder location: unspecified site Overactive bladder N32.81
== END 2023-02-16 09:51 | disposition home or self-care (01) ==
LOC: HO.HUSH 08:55
PROVIDERS: PCP Internal Medicine; Visit Provider Urology
DX: N32.81 Overactive bladder (principal); C67.9 Malignant neoplasm of bladder, unspecified
CPT/HCPCS: 99214

== ENCOUNTER → 2023-02-16 08:55 | Outpatient (BNVA) | payer MEDICARE, SELFPAY | PROVIDERS: PCP Internal Medicine; Visit Provider Urology ==

== ENCOUNTER 2023-06-29 09:25 | Outpatient (REF) | payer MEDICARE, SELFPAY ==
[2023-06-29 11:36] LABS: Estimated Average Glucose 189 mg/dL; Hemoglobin A1c % 8.2 % (<6.0)
[2023-06-29 11:50] LABS: Anion Gap 13 (12-20); Blood Urea Nitrogen 22 mg/dL (9-16); Calcium 9.3 mg/dL (8.4-10.2); Carbon Dioxide 27 mmol/L (22-29); Chloride 103 mmol/L (96-108); Estimated Glomerular Filt Rate 58; Glucose Random 235 mg/dL (60-115); Potassium 3.9 mmol/L (3.3-5.1); Sodium 139 mmol/L (135-145)
[2023-06-29 12:39] LABS: Creatinine Urine 316.89 mg/dL; Microalbum/Creatinine Ratio Ur 5.3 ug/mg cr (<30)
== END 2023-06-29 09:26 | disposition home or self-care (01) ==
LOC: HO.HMGCLDS 09:25
PROVIDERS: PCP Internal Medicine; Visit Provider Internal Medicine
DX: E11.9 Type 2 diabetes mellitus without complications (principal); I10 Essential (primary) hypertension; J45.909 Unspecified asthma, uncomplicated
CPT/HCPCS: 36415; 80048; 82043; 82570; 83036

== ENCOUNTER 2023-08-23 09:23 | Outpatient (REF) | payer MEDICARE, SELFPAY ==
[2023-08-23 16:47] LABS: Urine Cytology See Pathology rpt
== END 2023-08-23 09:24 | disposition home or self-care (01) ==
LOC: HO.LAB 09:23
PROVIDERS: PCP Internal Medicine; Visit Provider Urology
DX: C67.9 Malignant neoplasm of bladder, unspecified (principal); R35.1 Nocturia; N32.81 Overactive bladder; R39.15 Urgency of urination; Z79.899 Other long term (current) drug therapy
CPT/HCPCS: 51798; 88112; 99212

== ENCOUNTER 2023-08-23 09:23 | Outpatient (AMB) | payer MEDICARE, SELFPAY ==
--- NOTE | 2023-08-23 09:37 | A.OFFVIS_ITS ---
Intake Visit Reasons: 6m/PVR Intake Note: Patient is Present for PVR/ Urology Med: Tolterodine Antibiotic Allergy:None Blood Thinner: None Todays PVR: 0 Allergies No Known Allergies Allergy (Verified 02/16/23 09:00) Medication List - Last Reconciled 08/23/23 by Forest Clark MD blood sugar diagnostic (OneTouch Ultra Test strips) As directed budesonide-formoterol 160-4.5 mcg/actuation 2 puffs PO QAM glipizide 10 mg PO BID hydrocodone-acetaminophen 5-325 mg 1 - 2 tabs PO Q6H PRN lancets (OneTouch Delica Plus Lancet) As directed lancets (OneTouch UltraSoft Lancets) As directed lisinopril 5 mg PO DAILY lovastatin 10 mg PO DAILY solifenacin 5 mg PO DAILY 30 days HPI Comments Details: Varsha is a pleasant female. 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 Patient understanding and buy in was sought Twelve month follow-up HbA1c 07/21 8.2 Lower urinary tract symptoms Predominate urinary urgency Background of diabetes Nocturia times 1-2, occasional 3 Current medication tolterodine 4 mg Bladder cancer superficial Diagnosed a number of years ago Continues with yearly surveillance Background with diabetic diagnosis on glipizide, metformin Cystoscopy - 12/18 NAD, 12/19 NAD, 12/20 NAD Continue with surveillance yearly [facility] Medical History (Updated 02/16/23 @ 09:48 by Forest Clark MD) HTN (hypertension) Diabetes mellitus Asthma Surgical History (Updated 12/05/22 @ 10:18 by Marla Casanova [facility]) Status post surgical removal and fulguration of bladder neoplasm Social History (Updated 02/15/23 @ 09:08 by Aileen Koch [facility]) Current occupational status: retired Review of Systems Const Denies chills and Denies fever(s) Card Reports no additional complaints and Denies syncope Resp Denies cough GI Denies abdominal pain and Denies heartburn Reports as per HPI and Denies change in libido Neuro Denies syncope Psych Denies change in libido Endo Denies change in libido Physical Exam Const General: cooperative, healthy appearing, comfortable and no acute distress Orientation/consciousness: patient oriented x3 HEENT Face and sinus: Yes normal facial exam Mouth: moist mucous membranes Neck Neck: Yes normal visual inspection, Yes full ROM and Yes trachea midline Chest Chest palpation & inspection: normal inspection of the chest Resp Effort & Inspection: normal respiratory effort, able to speak in complete sentences and no respiratory distress GI Inspection: Yes normal to inspection Back/Spine/Pelvis Cervical Spine: normal cervical lordosis Thoracic/Lumbar Spine: thoracic and lumbar spine normal to inspection Skin General skin exam: no rashes or lesions noted Neuro General: patient oriented x3, gait normal, tone normal and moves all extremities Extrem General: Yes normal to inspection and Yes capillary refill normal Office Procedures Post Void Residual Post Residual Void Post Void Residual (PVR): 0 [id number] Void Residual by ultrasound Assessment & Plan Assessment & Plan (1) Overactive bladder: Code(s): N32.81 - Overactive bladder Category: Medical (2) Bladder cancer: Comment: Low-grade Code(s): C67.9 - Malignant neoplasm of bladder, unspecified Category: Medical Qualifiers: Bladder location: unspecified site Qualified Code(s): C67.9 - Malignant neoplasm of bladder, unspecified Plan Six-month follow-up Orders: Orders Urine Cytology Today C67.9 - Malignant neoplasm of bladder, unspecified AMB Post Void Residual by ultrasound Today N32.81 - Overactive bladder Medications: New solifenacin 5 mg PO DAILY 30 days 30 tabs 1RF N32.81 - Overactive bladder, R39.15 - Urgency of urination Discontinued tolterodine ER Discontinued Reason: Patient Completed Course 4 mg PO DAILY 90 days 90 caps 1RF Patient Instructions: Imaging studies, laboratory and physical exam results were discussed and reviewed in detail. No major barriers to patient understanding were identified. An opportunity to ask questions regarding the treatment plan was provided. All questions were answered. The patient expressed understanding and agreement with the above treatment plan. The patient is aware they should contact our office by phone for worsening of their current condition or the appearance of new urologic symptoms. Compliance is encouraged with any medications and followup testing that is ordered. It is a privilege to participate in the urologic care of your patient. If you have any questions or concerns regarding treatment for the above conditions, or other urologic issues, please do not hesitate to contact me. The office telephone contact is [phone]. This note is constructed using voice recognition software. While every effort has been made to ensure accuracy broadcast operations manager errors may have been included. Yours sincerely, Dr Forest Clark MD, [facility] - Urology Providers of Expert, Compassionate Care for the Genitourinary System Coding Level of Care Code Est Pt Level 4 (95075) Complex EM visit Add On G2211 Diagnoses Overactive bladder N32.81 Malignant neoplasm of urinary bladder, unspecified site C67.9 Bladder location: unspecified site CPT Codes Post Residual Void - PVR CPT Code: 33015-Jcze Void Residual by ultrasound ([id number])
== END 2023-08-23 09:56 | disposition home or self-care (01) ==
PROVIDERS: PCP Internal Medicine; Visit Provider Urology
DX: N32.81 Overactive bladder (principal); C67.9 Malignant neoplasm of bladder, unspecified
CPT/HCPCS: 99214; G2211

== ENCOUNTER 2023-09-27 09:22 | Outpatient (REF) | payer MEDICARE, SELFPAY ==
[2023-09-27 10:46] LABS: Estimated Average Glucose 194 mg/dL; Hemoglobin A1c % 8.4 % (<6.0)
[2023-09-27 11:21] LABS: Anion Gap 11 (12-20); Blood Urea Nitrogen 20 mg/dL (9-16); Calcium 9.9 mg/dL (8.4-10.2); Carbon Dioxide 29 mmol/L (22-29); Chloride 105 mmol/L (96-108); Estimated Glomerular Filt Rate > 60; Glucose Random 203 mg/dL (60-115); Potassium 4.5 mmol/L (3.3-5.1); Sodium 140 mmol/L (135-145)
== END 2023-09-27 09:23 | disposition home or self-care (01) ==
LOC: HO.HMGCLDS 09:22
PROVIDERS: PCP Internal Medicine; Visit Provider Internal Medicine
DX: E11.9 Type 2 diabetes mellitus without complications (principal); I10 Essential (primary) hypertension
CPT/HCPCS: 36415; 80048; 83036

== ENCOUNTER 2024-02-08 10:38 | Outpatient (REF) | payer MEDICARE, SELFPAY ==
[2024-02-08 13:22] LABS: MANUAL DIFF FLAG NO
[2024-02-08 13:33] LABS: Basophils Absolute Auto 0.1 X10*3/uL (0.0-0.2); Eosinophils Absolute Auto 0.3 X10*3/uL (0.0-0.4); Eosinophils Percent Auto 3.2 % (0-4); Hematocrit 40.3 % (37.0-47.0); Hemoglobin 13.3 g/dl (12.0-16.0); Imm Gran Abs Auto 0.02 X10*3/uL (0.00-0.03); Imm Gran Pct Auto 0.2 % (0.0-0.4); Lymphocytes Percent Auto 24.8 % (20-40); Mean Corpuscular Volume 90.8 fL (80.0-98.0); Mean Platelet Volume 10.5 fL (9.4-12.3); Monocytes Absolute Auto 0.6 X10*3/uL (0.1-1.2); Monocytes Percent Auto 6.9 % (2-11); Neutrophils Absolute Auto 5.2 x10*3/uL (2.0-8.3); Neutrophils Percent Auto 63.9 % (45-73); Platelet Count 284 X10*3/uL (160-400); Red Blood Count 4.44 X10*6/uL (4.20-5.50); Red Cell Distribution Width 13.3 % (11.0-16.0); White Blood Count 8.1 X10*3/uL (4.8-10.8)
[2024-02-08 13:54] LABS: Alanine Aminotransferase 14 U/L (0-31); Albumin Level 3.9 g/dL (3.5-5.0); Alkaline Phosphatase 62 U/L (39-117); Anion Gap 10 (12-20); Aspartate Amino Transferase 18 U/L (5-31); Bilirubin Total 0.4 mg/dL (0.0-1.0); Blood Urea Nitrogen 22 mg/dL (9-16); Calcium 9.7 mg/dL (8.4-10.2); Carbon Dioxide 27 mmol/L (22-29); Chloride 106 mmol/L (96-108); Cholesterol 160 mg/dL (<200); Estimated Glomerular Filt Rate 59; Glucose Fasting 207 mg/dL (60-99); HDL Cholesterol 54 mg/dL (>40); LDL Cholesterol Calculated 96 mg/dL (<100); Potassium 4.3 mmol/L (3.3-5.1); Sodium 139 mmol/L (135-145); Total Protein 7.5 g/dL (6.5-8.0); Triglycerides 54 mg/dL (<150)
[2024-02-08 13:57] LABS: Estimated Average Glucose 197 mg/dL; Hemoglobin A1C 224.8816 umol/L; Hemoglobin A1c % 8.5 % (<6.0)
[2024-02-08 14:14] LABS: Thyroid Stimulating Hormone 2.42 uIU/mL (0.32-4.0); Vitamin D 25-OH Total 53.8 ng/mL (>30)
[2024-02-08 14:15] LABS: Creatinine Urine 203.84 mg/dL; Microalbum/Creatinine Ratio Ur 4.9 ug/mg cr (<30)
== END 2024-02-08 10:39 | disposition home or self-care (01) ==
LOC: HO.10HDL 10:38
PROVIDERS: Visit Provider Internal Medicine
DX: E11.9 Type 2 diabetes mellitus without complications (principal); I10 Essential (primary) hypertension; E78.00 Pure hypercholesterolemia, unspecified; J45.909 Unspecified asthma, uncomplicated
CPT/HCPCS: 36415; 80053; 80061; 82043; 82306; 82570; 83036; 84443; 85025

== ENCOUNTER 2024-02-08 10:50 | Outpatient (REF) | payer MEDICARE, SELFPAY ==
--- NOTE | ~2024-02-08 | MM_ITS ---
EXAMINATION: MM SCREENING DIGITAL BREAST TOMOSYNTHESIS, BILATERAL CLINICAL INFORMATION: Screening. Asymptomatic. COMPARISON: Mammography: Comparison is made with available priors TECHNIQUE: Digital breast mammography with tomosynthesis is performed in both the craniocaudal and mediolateral oblique views along with computer-aided detection (CAD). FINDINGS: There are scattered areas of fibroglandular density (ACR BI-RADS breast composition Category b). There are no significant masses, abnormal calcifications, or other abnormalities. MM/MM tomosynthesis screening BI IMPRESSION: No mammographic evidence of malignancy. ASSESSMENT: BI-RADS BI-RADS 1 - Negative RECOMMENDATION: Routine annual mammography screening. 1 year F/U This examination should not preclude the clinical evaluation of a suspicious palpable abnormality. This patient's information was entered into a reminder system with a target due date for their next mammogram. Electronically signed by: Lay Ellis DO 02/20/2024 08:15 AM EDT
== END 2024-02-08 10:51 | disposition home or self-care (01) ==
LOC: HO.MAMMO 10:50
PROVIDERS: PCP Internal Medicine; Visit Provider Internal Medicine
DX: Z12.31 Encounter for screening mammogram for malignant neoplasm of breast (principal)
CPT/HCPCS: 77063; 77067

== ENCOUNTER → 2024-02-08 11:00 | Outpatient (BNV) | payer MEDICARE, SELFPAY | PROVIDERS: PCP Internal Medicine; Visit Provider Internal Medicine | DX: Z12.31 Encounter for screening mammogram for malignant neoplasm of breast (principal) | CPT/HCPCS: 77063; 77067 ==

== ENCOUNTER 2024-03-06 10:54 | Outpatient (REF) | payer MEDICARE, SELFPAY | END 2024-03-06 10:55 | disposition home or self-care (01) | LOC: HO.LAB 10:54 | PROVIDERS: PCP Internal Medicine; Visit Provider Urology | DX: C67.9 Malignant neoplasm of bladder, unspecified (principal); N32.81 Overactive bladder; N30.10 Interstitial cystitis (chronic) without hematuria; R35.1 Nocturia; Z79.899 Other long term (current) drug therapy | CPT/HCPCS: 52000; 81003; 88121; 99212 ==

== ENCOUNTER 2024-03-06 10:54 | Outpatient (AMB) | payer MEDICARE, SELFPAY ==
--- NOTE | 2024-03-06 11:03 | A.OFFVIS_ITS ---
Intake Visit Reasons: cystoscopy(Bladder Ca) Intake Note: Patient is Present for Cystoscopy Urology Med: Solifenacin Antibiotic Allergy: None Blood Thinner: None Hemoglobin A1C: 02/08/24- 8.5 Last Cytology: 08/23/2023 URO- G Disposable Cystoscope lot: [id number] exp:05/31/2026 Steam Box Hand Required: No Accompanied by: Self / Same As Patient Allergies No Known Allergies Allergy (Verified 03/06/24 11:04) HPI Comments Details: Varsha is a pleasant female. She is here for the following urologic conditions - bladder cancer - lower urinary tract symptoms Follow-up for urinary tract symptoms Thought solifenacin had some benefit but does have to wake at night secondary to diabetes and diabetic medications Try Myrbetriq Check cystoscopy today clear Twelve month follow-up HbA1c 07/21 8.2 Lower urinary tract symptoms Predominate urinary urgency Background of diabetes Nocturia times 1-2, occasional 3 Prior medication tolterodine 4 mg Recommend solifenacin versus Myrbetriq Bladder cancer superficial Diagnosed a number of years ago Continues with yearly surveillance Background with diabetic diagnosis on glipizide, metformin Cystoscopy - 12/18 NAD, 12/19 NAD, 12/20 NAD Continue with surveillance yearly [facility] Medical History HTN (hypertension) Diabetes mellitus Asthma Surgical History Status post surgical removal and fulguration of bladder neoplasm Social History Current occupational status: retired Review of Systems Const Denies chills and Denies fever(s) Card Reports no additional complaints and Denies syncope Resp Denies cough GI Denies abdominal pain and Denies heartburn Reports as per HPI and Denies change in libido Neuro Denies syncope Psych Denies change in libido Endo Denies change in libido Physical Exam Const General: cooperative, healthy appearing, comfortable and no acute distress Orientation/consciousness: patient oriented x3 HEENT Face and sinus: Yes normal facial exam Mouth: moist mucous membranes Neck Neck: Yes normal visual inspection, Yes full ROM and Yes trachea midline Chest Chest palpation & inspection: normal inspection of the chest Resp Effort & Inspection: normal respiratory effort, able to speak in complete sentences and no respiratory distress GI Inspection: Yes normal to inspection Back/Spine/Pelvis Cervical Spine: normal cervical lordosis Thoracic/Lumbar Spine: thoracic and lumbar spine normal to inspection Skin General skin exam: no rashes or lesions noted Neuro General: patient oriented x3, gait normal, tone normal and moves all extremities Extrem General: Yes normal to inspection and Yes capillary refill normal Office Procedures Cystoscopy Consent Discussed risk and benefit or proposed procedure with the patient. Information consent for procedure given to the patient. Discussed technical aspects, risks, benefits and alternatives in full. Addressed all of the patient's questions and concerns regarding the procedure. The patient demonstrated knowledge and understanding. They wish to proceed with this procedure. Preparation The patient was prepped in the usual manner. A maintainability engineer was present and in the room. Genitalia was prepped with betadine solution in a sterile manner. Lidocaine Jelly 2% was placed into the urethra and 16Fr flexible Olympus cystoscope was inserted into the meatus after adequate lubrication. Cystoscopy Consent Discussed risk and benefit or proposed procedure with the patient. Information consent for procedure given to the patient. Discussed technical aspects, risks, benefits and alternatives in full. Addressed all of the patient's questions and concerns regarding the procedure. The patient demonstrated knowledge and understanding. They wish to proceed with this procedure. Preparation The patient was prepped in the usual manner. A maintainability engineer was present and in the room. Genitalia was prepped with betadine solution in a sterile manner. Lidocaine Jelly 2% was placed into the urethra and 16Fr flexible Olympus cystoscope was inserted into the meatus after adequate lubrication. Procedure Meatus normal position Urethra normal Bladder examination with retroflexion of cystoscope Bladder Orifices normal shape and position Trigone metaplasia Bladder Capacity median Trabeculations grade 1 Cellule Formation - Diverticulum Formation - Mucosal Erythema - Bladder Tumor - [id number]-[id number] Procedure code (CPT) selection complete Office Meds lidocaine HCl 2 % mucosal jelly in applicator Performing Provider: Forest Clark MD Performing Location: [facility] Administered by: DOROTA Null on 03/06/24 13:48 Dose Route Admin Location Dispensed Lot Number Expiration Date ND Floor Worker 10 mL intra-urethral 10 mL nitrofurantoin monohydrate/macrocrystals 100 mg capsule Performing Provider: Forest Clark MD Performing Location: [facility] Administered by: DOROTA Null on 03/06/24 13:48 Dose Route Admin Location Dispensed Lot Number Expiration Date NDC Floor Worker 100 mg PO 1 cap Results AMB Urinalysis, Automated UA Leukoctes 0 Reena/uL Last Edit by DOROTA Null on 03/06/24 11:34 UA Nitrite Negative Last Edit by DOROTA Null on 03/06/24 11:34 UA Urobilinogen 0.2 mg/dL Last Edit by DOROTA Null on 03/06/24 11:3 4 UA Protein 0 mg/dL Last Edit by DOROTA Null on 03/06/24 11:34 UA pH 6.0 Last Edit by DOROTA Null on 03/06/24 11:34 UA Blood 0 Ric/uL Last Edit by DOROTA Null on 03/06/24 11:34 UA Specific [place] 1.020 Last Edit by DOROTA Null on 03/06/24 11: 34 UA Ketone Negative Last Edit by DOROTA Null on 03/06/24 11:34 UA Bilirubin 0 mg/dL Last Edit by DOROTA Null on 03/06/24 11:34 UA Glucose 1000 mg/dL Last Edit by DOROTA Null on 03/06/24 11:34 Results Reviewed Results Reviewed: Laboratory Last Values Urine pH (Auto) 6.0 03/06/24 11:05 Specific [place] (Auto) 1.020 03/06/24 11:05 Urine Protein (Auto) 0 mg/dL 03/06/24 11:05 Glucose (UA)(Auto) 1000 mg/dL 03/06/24 11:05 Urine Ketones (Auto) Negative 03/06/24 11:05 Urine Blood (Auto) 0 Ric/uL 03/06/24 11:05 Urine Nitrite (Auto) Negative 03/06/24 11:05 Urine Bilirubin (Auto) 0 mg/dL 03/06/24 11:05 Urine Urobilinogen (Auto) 0.2 mg/dL 03/06/24 11:05 Leukocyte Esterase (Auto) 0 Reena/uL 11/07/24 11:05 Assessment & Plan Assessment & Plan (1) Bladder cancer: Comment: Low-grade Code(s): C67.9 - Malignant neoplasm of bladder, unspecified Category: Medical Qualifiers: Bladder location: unspecified site Qualified Code(s): C67.9 - Malignant neoplasm of bladder, unspecified (2) Overactive bladder: Code(s): N32.81 - Overactive bladder Category: Medical Plan Trial Myrbetriq 12 month follow-up cysto Orders: Orders AMB Cystoscopy Today C67.9 - Malignant neoplasm of bladder, unspecified AMB Cystoscopy Today C67.9 - Malignant neoplasm of bladder, unspecified AMB Urinalysis Automated Today Z13.9 - Encounter for screening, unspecified FISH Bladder Cancer Today C67.9 - Malignant neoplasm of bladder, unspecified Medications: New lidocaine HCl 2% 10 mL intra-urethral ONCE 10 mL 0RF C67.9 - Malignant neoplasm of bladder, unspecified nitrofurantoin monohyd/m-cryst 100 mg 100 mg PO ONCE 1 cap 0RF C67.9 - Malignant neoplasm of bladder, unspecified naproxen 500 mg PO ONCE 1 tab 0RF C67.9 - Malignant neoplasm of bladder, unspecified mirabegron ER (Myrbetriq) 25 mg PO DAILY 30 days 30 tabs 1RF N30.10 - Interstitial cystitis (chronic) without hematuria, N32.81 - Overactive bladder, R35.1 - Nocturia, R39.15 - Urgency of urination Discontinued solifenacin Discontinued Reason: Patient Completed Course 5 mg PO DAILY 30 days 30 tabs 1RF N32.81 - Overactive bladder, R39.15 - Urgency of urination Patient Instructions: Imaging studies, laboratory and physical exam results were discussed and reviewed in detail. No major barriers to patient understanding were identified. An opportunity to ask questions regarding the treatment plan was provided. All questions were answered. The patient expressed understanding and agreement with the above treatment plan. The patient is aware they should contact our office by phone for worsening of their current condition or the appearance of new urologic symptoms. Compliance is encouraged with any medications and followup testing that is ordered. It is a privilege to participate in the urologic care of your patient. If you have any questions or concerns regarding treatment for the above conditions, or other urologic issues, please do not hesitate to contact me. The office telephone contact is [phone]. This note is constructed using voice recognition software. While every effort has been made to ensure accuracy syrup blender errors may have been included. Yours sincerely, Dr Forest Clark MD, [facility] - Urology Providers of Expert, Compassionate Care for the Genitourinary System Coding Level of Care Code Est Pt Level 4 (00073) Diagnoses Malignant neoplasm of urinary bladder, unspecified site C67.9 Bladder location: unspecified site Overactive bladder N32.81 CPT Codes Cystoscopy - CPT: 89552-[id number] ([id number])
== END 2024-03-06 12:07 | disposition home or self-care (01) ==
LOC: HO.HUSH 10:55
PROVIDERS: PCP Internal Medicine; Visit Provider Urology
DX: C67.9 Malignant neoplasm of bladder, unspecified (principal); N32.81 Overactive bladder; Z13.9 Encounter for screening, unspecified
CPT/HCPCS: 52000; 99214

== ENCOUNTER 2024-03-20 09:54 | Outpatient (REF) | payer MEDICARE, SELFPAY ==
--- NOTE | ~2024-03-20 | MM_ITS ---
EXAMINATION: BONE DENSITOMETRY CLINICAL INDICATION: Asymptomatic menopausal state. COMPARISON: Previous BD dated 01/26/2021 and baseline BD dated 03/06/2008. TECHNIQUE: Using a [employer] DXA System (software version: 13.1) manufactured by [employer], dual-energy x-ray absorptiometry was performed of the lumbar spine and left hip. The images are of good technical quality. Summary results are attached. FINDINGS: AP SPINE L1-L4: Current: BMD 0.967 g/cm2, Z-score -0.1, T-score -1.8, osteopenia, 2.8% decrease from previous, 2.7% increase from baseline (<5% change is not significant). Prior: BMD 0.995 g/cm2. Baseline: BMD 0.942 g/cm2. LEFT FEMUR, NECK: Current: BMD 0.717 g/cm2, Z-score -0.5, T-score -2.3, osteopenia. Prior: BMD 0.699 g/cm2. Baseline: BMD 0.785 g/cm2. LEFT FEMUR, TOTAL: Current: BMD 0.812 g/cm2, Z-score 0.1, T-score -1.6, osteopenia, 0.9% increase from previous, 10.5% decrease from baseline (<5% change is not significant). Prior: BMD 0.805 g/cm2. Baseline: BMD 0.907 g/cm2. IDENTIFIED RISK FACTORS: Menopause. HISTORY OF FRACTURE: None listed. MEDICATIONS: Vitamin D. MM/XR DEXA axial skeleton IMPRESSION: 1. DIAGNOSIS: Osteopenia based on the lowest T-score value of -2.3 in the femoral neck applying World Health Organization criteria. 2. 10-YEAR FRACTURE RISK PREDICTION, FRAX: Major osteoporotic fracture (clinical spine, forearm, hip or shoulder) 14.5%. Hip fracture 4.0%. 3. Treatment Recommendations: NOF guidelines recommend consideration for treatment in postmenopausal women and men age 50 and older presenting with the following: -A hip or vertebral (clinical or morphometric) fracture. -T-score less than or equal to -2.5 at the femoral neck or spine after appropriate evaluation to exclude secondary causes. -Low bone mass at the hip or spine and a 10-year fracture probability by FRAX of greater than or equal to 3% for hip fracture or greater than or equal to 20% for major osteoporotic fracture based on the [place] adapted WHO algorithm. 4. Other Recommendations: All treatment decisions require clinical judgment and consideration of individual patient factors, including patient preferences, comorbidities, previous drug use, risk factors not captured in the FRAX model (e.g. frailty, falls, vitamin D deficiency, increased bone turnover, interval significant decline in bone density) and possible under or overestimation of fracture risk by FRAX. Additional medical evaluation for secondary cause of low bone mineral density may be appropriate. FUTURE SCAN RECOMMENDATION: People with diagnosed cases of osteoporosis or at high risk for fracture should have regular bone mineral density tests. For patients eligible for Medicare, routine testing is allowed once every 2 years. The testing frequency can be increased to one year for patients who have rapidly progressing disease, those who are receiving or discontinuing medical therapy to restore bone mass, or have additional risk factors. Electronically signed by: Viridiana Ramires MD 03/20/2024 12:10 PM QUINN ARNETT
== END 2024-03-20 09:55 | disposition home or self-care (01) ==
LOC: HO.MAMMO 09:54
PROVIDERS: PCP Internal Medicine; Visit Provider Internal Medicine
DX: Z13.820 Encounter for screening for osteoporosis (principal); Z78.0 Asymptomatic menopausal state; M85.89 Other specified disorders of bone density and structure, multiple sites
CPT/HCPCS: 77080

== ENCOUNTER 2024-05-14 10:33 | Outpatient (REF) | payer MEDICARE, SELFPAY ==
[2024-05-14 13:04] LABS: MANUAL DIFF FLAG NO
[2024-05-14 13:13] LABS: Appearance Urine Cloudy; Color Urine Yellow; Glucose Urine UA Negative (Negative); Leukocyte Esterase Urine Trace (Negative); Nitrite Urine Negative (Negative); UMIC TRIGGER UA YES; Urine Blood Negative (Negative); Urine Ketones Negative (Negative); Urine Protein Negative (Neg-Trace)
[2024-05-14 13:17] LABS: Bacteria Urine None Seen (None Seen); Hyaline Casts Urine 0-2 /LPF (0-2); RBC Urine 0-2 /HPF (0-2); WBC Urine 0-5 /HPF (0-5)
[2024-05-14 13:19] LABS: Basophils Absolute Auto 0.1 X10*3/uL (0.0-0.2); Basophils Percent Auto 1.4 % (0-2); Eosinophils Absolute Auto 0.5 X10*3/uL (0.0-0.4); Eosinophils Percent Auto 6.3 % (0-4); Hematocrit 42.1 % (37.0-47.0); Hemoglobin 13.8 g/dl (12.0-16.0); Imm Gran Abs Auto 0.01 X10*3/uL (0.00-0.03); Imm Gran Pct Auto 0.1 % (0.0-0.4); Lymphocytes Absolute Auto 2.3 X10*3/uL (1.2-4.9); Mean Corpuscular HGB Conc 32.8 g/dl (31.0-35.0); Mean Corpuscular Hemoglobin 29.7 pg (27.0-33.0); Mean Corpuscular Volume 90.7 fL (80.0-98.0); Monocytes Absolute Auto 0.7 X10*3/uL (0.1-1.2); Neutrophils Absolute Auto 3.8 x10*3/uL (2.0-8.3); Neutrophils Percent Auto 52.2 % (45-73); Platelet Count 296 X10*3/uL (160-400); Red Blood Count 4.64 X10*6/uL (4.20-5.50); Red Cell Distribution Width 13.5 % (11.0-16.0); White Blood Count 7.4 X10*3/uL (4.8-10.8)
[2024-05-14 13:27] LABS: Estimated Average Glucose 203 mg/dL; Hemoglobin A1C 256.1578 umol/L; Hemoglobin A1c % 8.7 % (<6.0); Total Hemoglobin (HGBA1C) 3570.9552 umol/L
[2024-05-14 13:40] LABS: Creatinine Urine 161.63 mg/dL; Microalbum/Creatinine Ratio Ur 4.9 ug/mg cr (<30)
[2024-05-14 13:43] LABS: Alanine Aminotransferase 20 U/L (0-31); Albumin Level 3.9 g/dL (3.5-5.0); Alkaline Phosphatase 53 U/L (39-117); Anion Gap 8 (12-20); Aspartate Amino Transferase 24 U/L (5-31); Bilirubin Total 0.4 mg/dL (0.0-1.0); Blood Urea Nitrogen 22 mg/dL (9-16); Calcium 9.1 mg/dL (8.4-10.2); Carbon Dioxide 29 mmol/L (22-29); Chloride 106 mmol/L (96-108); Cholesterol 164 mg/dL (<200); Estimated Glomerular Filt Rate > 60; Glucose Fasting 222 mg/dL (60-99); HDL Cholesterol 62 mg/dL (>40); LDL Cholesterol Calculated 91 mg/dL (<100); Potassium 4.3 mmol/L (3.3-5.1); Sodium 139 mmol/L (135-145); Total Protein 7.8 g/dL (6.5-8.0); Triglycerides 56 mg/dL (<150)
[2024-05-14 13:59] LABS: Vitamin D 25-OH Total 50.3 ng/mL (>30)
== END 2024-05-14 10:34 | disposition home or self-care (01) ==
LOC: HO.HMGCLDS 10:33
PROVIDERS: PCP Internal Medicine; Visit Provider Internal Medicine
DX: E11.9 Type 2 diabetes mellitus without complications (principal); I10 Essential (primary) hypertension; E78.00 Pure hypercholesterolemia, unspecified
CPT/HCPCS: 36415; 80053; 80061; 81001; 82043; 82306; 82570; 83036; 85025

== ENCOUNTER 2024-07-25 08:21 | Day surgery (SDC) | payer MEDICARE, SELFPAY ==
[2024-07-02 14:56] VITALS: BMI 29.7
--- NOTE | 2024-07-03 08:48 | HO.ANESPROP2 ---
Documented by User: Deena Arboleda NP 07/23/24 12:49 HPI - Anesthesia Eval Consult details Narrative: 74yo F for Colonoscopy, 07/25/24 PMFSH Active Problems Active Problems: All Active Problems Right knee pain (Acute) Overactive bladder (Acute) Bladder cancer (Acute) Past Medical History Medical History Elevated cholesterol HTN (hypertension) Diabetes mellitus Asthma Surgical History Surgical History H/O colonoscopy Status post surgical removal and fulguration of bladder neoplasm Social History Social History Patient Tobacco Use Status: Former Tobacco user Use of substances other than those prescribed or required for medical reasons: No Are you DNR?: No Advance Directives: No Advance Directives Information Provided: Yes Nutrition Risks: No Nutritional Risk Current occupational status: retired Meds Allergies Allergy/AdvReac Type Severity Reaction Status Date / Time No Known Allergies Allergy Verified 03/06/24 11:04 Home Medications ?Medication ?Instructions ?Recorded ?Confirmed ?Last Taken ?Type blood sugar diagnostic (OneTouch #10 ea 12/02/20 08/23/23 Unknown History Ultra Test strips) budesonide-formoterol HFA 160 2 puff PO QAM 12/02/20 08/23/23 Unknown History mcg-4.5 mcg/actuation aerosol inhaler glipizide 5 mg tablet 10 mg PO BID 12/02/20 07/02/24 Unknown History hydrocodone 5 mg-acetaminophen 325 1 - 2 tab PO Q6H PRN pain 12/02/20 08/23/23 Unknown History mg tablet lancets (Incomparable ThingsTouch UltraSoft #100 ea 12/02/20 08/23/23 Unknown History Lancets) lancets 33 gauge (OneTouch Delica #100 ea 12/02/20 08/23/23 Unknown History Plus Lancet) lisinopril 5 mg tablet 5 mg PO DAILY 12/02/20 07/02/24 Unknown History lovastatin 10 mg tablet 10 mg PO DAILY 12/02/20 07/02/24 Unknown History albuterol sulfate 90 mcg/actuation 2 puff inhalation QID PRN 07/02/24 07/02/24 Unknown History aerosol inhaler Shortness Of Breath metformin 500 mg tablet,extended 500 mg PO DAILY 07/02/24 07/02/24 Unknown History release 24 hr Exam Height,Weight and Vital Signs: Height 4 ft 11 in Weight 66.735 kg Assessment and Plan Assessment Anesthesia Assessment: Chart Reviewed Documented by User: Janet Arias MD 07/25/24 11:14 HPI - Anesthesia Eval Consult details Narrative: 74yo F for Colonoscopy 07/25/24 PMFSH Active Problems Active Problems: All Active Problems Right knee pain (Acute) Overactive bladder (Acute) Bladder cancer (Acute) Asthma. Not using inhalers daily. Only when symptomatic Past Medical History Medical History Elevated cholesterol HTN (hypertension) Diabetes mellitus Asthma Family History Family history of problems with anesthesia: No Surgical History Surgical History H/O colonoscopy Status post surgical removal and fulguration of bladder neoplasm History of Problems with Anesthesia: No Social History Social History Patient Tobacco Use Status: Former Tobacco user Use of substances other than those prescribed or required for medical reasons: No Are you DNR?: No Advance Directives: No Advance Directives Information Provided: Yes Nutrition Risks: No Nutritional Risk Current occupational status: retired [employer] Allergies Allergy/AdvReac Type Severity Reaction Status Date / Time No Known Allergies Allergy Verified 03/06/24 11:04 Home Medications ?Medication ?Instructions ?Recorded ?Confirmed ?Last Taken ?Type blood sugar diagnostic (TabithaTouch #10 ea 12/02/20 08/23/23 Unknown History Ultra Test strips) budesonide-formoterol HFA 160 2 puff PO QAM 12/02/20 08/23/23 Unknown History mcg-4.5 mcg/actuation aerosol inhaler glipizide 5 mg tablet 10 mg PO BID 12/02/20 07/02/24 Unknown History hydrocodone 5 mg-acetaminophen 325 1 - 2 tab PO Q6H PRN pain 12/02/20 08/23/23 Unknown History mg tablet lancets (OneTouch UltraSoft #100 ea 12/02/20 08/23/23 Unknown History Lancets) lancets 33 gauge (OneTouch Delica #100 ea 12/02/20 08/23/23 Unknown History Plus Lancet) lisinopril 5 mg tablet 5 mg PO DAILY 12/02/20 07/02/24 Unknown History lovastatin 10 mg tablet 10 mg PO DAILY 12/02/20 07/02/24 Unknown History albuterol sulfate 90 mcg/actuation 2 puff inhalation QID PRN 07/02/24 07/02/24 Unknown History aerosol inhaler Shortness Of Breath metformin 500 mg tablet,extended 500 mg PO DAILY 07/02/24 07/02/24 Unknown History release 24 hr Exam Height,Weight and Vital Signs: Height 4 ft 11 in Weight 66.735 kg Vital Signs Temp Pulse Resp BP Pulse Ox O2 Del Method 07/25/24 10:41 97.9 F 62 16 150/67 H 96 Room Air Airway Mallampati Class: II TM Dist: >3cm Neck ROM: Full Loose/Missing/Broken Teeth: Yes (Missing some molars. Denies broken or loose teeth) Heart: RRR Lungs: CTAB Assessment and Plan Assessment Anesthesia Assessment: Anesthesia Plan Discussed and Chart Reviewed Final Anesthetic Review Family History of Problems with Anesthesia: No History of Problems with Anesthesia: No NPO: Yes ASA Class: II Final Preanesthetic Review: No Changes in Pt Med Stat, Meds/Allgs Chart Reviewed, Consent Obtained/Reviewed and Anes Risks/Benef Reviewed Patient Risk: Low Procedure Risk: Low Assessment/Block/Sedation in SS: Assess/Block/Sedation-SS Anesthetic Plan Anesthetic Plan: TIVA Disposition: Standard PACU
[2024-07-25 10:29] VITALS: BMI 28.7
[2024-07-25 10:41] VITALS: BP 150/67; PULSE 62; RESP 16; TEMP 36.6; O2SAT 96
[2024-07-25] MEDS: Lactated Ringers 1,000 ML 100 ML IVCONT (10:50)
[2024-07-25 11:26] LABS: Glucose, Whole Blood 203 mg/dL (60-115)
[2024-07-25 11:38] VITALS: BP 93/50; PULSE 68; RESP 14; TEMP 36.2; O2SAT 97
--- NOTE | 2024-07-25 11:38 | P.BOP_ITS ---
Brief Operative Note Date of Service: 06/27/24 Pre-op diagnosis: Screening Post-op diagnosis: other (Diverticulosis) Procedure: Colonoscopy to the cecum Surgeon: Roderick Holcomb MD Anesthesia: MAC Was an Acoustical Logging Engineer used for this Procedure?: No Estimated blood loss (mL): 0 Pathology: none sent Condition: stable Disposition: PACU
[2024-07-25 11:50] VITALS: BP 123/66; PULSE 61; RESP 16; O2SAT 97
[2024-07-25 12:05] VITALS: BP 112/61; PULSE 63; RESP 16; TEMP 36.2; O2SAT 98
--- NOTE | 2024-07-25 12:26 | OP_ITS ---
DATE OF SERVICE: 07/25/2024 SURGEON: Roderick Holcomb MD INDICATIONS: The patient presents for evaluation of colorectal cancer screening and family history of colon cancer. Full consent was obtained from her for this, including risks of bleeding and perforation. PREOPERATIVE DIAGNOSIS: POSTOPERATIVE DIAGNOSIS: PROCEDURE PERFORMED: Colonoscopy to cecum. ESTIMATED BLOOD LOSS: COMPLICATIONS: ANESTHESIA: Medication used; monitored anesthesia care. ASSISTANTS: SPECIMENS: PREOPERATIVE DIAGNOSES: Colorectal cancer screening and family history of colon cancer. POSTOPERATIVE DIAGNOSES: Colorectal cancer screening and family history of colon cancer, diverticulosis, and internal hemorrhoids. DESCRIPTION OF PROCEDURE: The patient was placed in the left lateral decubitus position. The digital rectal exam revealed no abnormalities. The Olympus video pediatric colonoscope was entered into the rectum and advanced easily to the cecum. Once in the cecum, I did identify normal-appearing cecal pouch with appendiceal orifice and a normal-appearing ileocecal valve. The entire cecum and ileocecal valve appeared normal. There was transillumination of light deep in the right lower quadrant. The scope was slowly withdrawn assessing all mucosal surfaces carefully. Preparation was excellent. I did not visualize any sign of polyps, colitis, nor angiodysplasia. There was a mild amount of sigmoid diverticulosis. In the rectum, scope was retroflexed visualizing internal hemorrhoids, but no other pathology. The rectal mucosa appeared normal. The scope was straightened and withdrawn from the patient. She tolerated the procedure well and was returned to the recovery area in stable condition. IMPRESSION: 1. Diverticulosis. 2. Internal hemorrhoids. PLAN: Given the negative exam, multiple negative screening colonoscopies in the past as well, and her age, I do not think any further screening colonoscopies. She will otherwise see me on a p.r.n. basis. Roderick Holcomb MD [facility]MAIL / [phone]
== END 2024-07-25 12:43 | disposition home or self-care (01) ==
PROVIDERS: PCP Internal Medicine; Visit Provider Internal Medicine
PROC: 0DJD8ZZ Inspection of Lower Intestinal Tract, Via Natural or Artificial Opening Endoscopic (ICD-10-PCS; CPT 45378; principal; 2024-07-25 10:30)
DX: Z12.11 Encounter for screening for malignant neoplasm of colon (principal); Z80.0 Family history of malignant neoplasm of digestive organs; K57.30 Diverticulosis of large intestine without perforation or abscess without bleeding; K64.8 Other hemorrhoids; I10 Essential (primary) hypertension; E78.00 Pure hypercholesterolemia, unspecified; J45.909 Unspecified asthma, uncomplicated; E11.9 Type 2 diabetes mellitus without complications; Z79.84 Long term (current) use of oral hypoglycemic drugs; Z79.899 Other long term (current) drug therapy; Z98.890 Other specified postprocedural states
CPT/HCPCS: G0105; 82947; J2003; J2704

== ENCOUNTER 2024-08-11 11:58 | Outpatient (REF) | payer MEDICARE, SELFPAY ==
[2024-08-11 17:15] LABS: Appearance Urine Hazy; Color Urine Orange; Glucose Urine UA >=1000 mg/dL (Negative); Leukocyte Esterase Urine Trace (Negative); Nitrite Urine Positive (Negative); UMIC TRIGGER UACC YES; Urine Blood Negative (Negative); Urine Ketones Trace mg/dL (Negative); Urine Protein 30 (1+) mg/dL (Neg-Trace)
[2024-08-11 17:33] LABS: RBC Urine 0-2 /HPF (0-2); Squamous Epithelial Cell Urine 0-2 /HPF (0-2); UACC Culture Trigger YES; WBC Urine 0-5 /HPF (0-5)
[2024-08-11 17:34] LABS: Bacteria Urine None Seen (None Seen); Hyaline Casts Urine 0-2 /LPF (0-2); Other Crystals Urine Present
== END 2024-08-11 11:59 | disposition home or self-care (01) ==
LOC: HO.LAB 11:58
PROVIDERS: PCP Internal Medicine; Visit Provider Nurse Practitioner Family
DX: N30.90 Cystitis, unspecified without hematuria (principal); B96.20 Unspecified Escherichia coli [E. coli] as the cause of diseases classified elsewhere; Z13.9 Encounter for screening, unspecified
CPT/HCPCS: 81001; 81003; 87086; 87088; 87186; 99212

== ENCOUNTER 2024-08-11 11:58 | Outpatient (AMB) | payer MEDICARE, SELFPAY ==
--- NOTE | 2024-08-11 12:39 | AM.OFFWIN_ITS ---
Intake Vital Signs 08/11/24 13:05 Weight 146 lb BP 122/80 Blood Pressure Location Rt brachial Position Sitting Pulse 68 Pulse Source Pulse Oximeter Temp 97.8 F Temp Source Oral Pulse Oximetry (%) 93 Oxygen Delivery Method Room Air Intake Visit Reasons: EP UTI? Intake Note: Patient here for discomfort and pressure that started sunday evening. Patient Tobacco Use Status: Former Tobacco user Allergies No Known Allergies Allergy (Verified 08/11/24 13:03) Do you need a note to return to daycare/school/sports/work: No HPI HPI Comments History of Present Illness Details 74 y/o Female patient who presents to [facility] with c/o Urinary Tract symptoms since Sunday. Pt c/o Dysuria and frequency PFSH Medical History (Updated 08/11/24 @ 14:07 by Ingrid Chavez NP) Cystitis Elevated cholesterol HTN (hypertension) Diabetes mellitus Asthma Surgical History H/O colonoscopy Status post surgical removal and fulguration of bladder neoplasm Social History Patient Tobacco Use Status: Former Tobacco user Current occupational status: retired Review of Systems Const All systems reviewed & are unremarkable except as noted in HPI and below Physical Exam Vital Signs: Last Vital Signs Temp 97.8 F 08/11/24 13:05 Pulse 68 08/11/24 13:05 BP 122/80 08/11/24 13:05 Pulse Ox 93 08/11/24 13:05 Oxygen Delivery Method Room Air 08/11/24 13:05 Const General: no acute distress; No comfortable Nutritional Appearance: overweight Orientation/consciousness: patient oriented x3 Resp Effort & Inspection: normal respiratory effort Cardio Heart sounds: S1 normal heart sound present and S2 normal heart sound present Other: Declined Pelvic Exam General: Yes no CVA tenderness Back/Spine/Pelvis Back: no CVA tenderness Neuro General: patient oriented x3 Results AMB Urinalysis, Automated UA Leukoctes 500 Reena/uL Last Edit by NATHAN Lynch on 08/11/24 13: 11 UA Nitrite Positive Last Edit by NATHAN Lynch on 08/11/24 13:11 UA Urobilinogen 8 mg/dL Last Edit by NATHAN Lynch on 08/11/24 13: 11 UA Protein 0 mg/dL Last Edit by Kareen Peraza [facility] on 08/11/24 13:11 UA pH 5.0 Last Edit by Kareen Peraza [facility] on 08/11/24 13:11 UA Blood 0 Ric/uL Last Edit by Kareen Peraza [facility] on 08/11/24 13:11 UA Specific [place] 1.015 Last Edit by Kareen Peraza [facility] on 08/11/24 13:11 UA Ketone Positive Last Edit by Kareen Peraza [facility] on 08/11/24 13:11 UA Bilirubin 4 mg/dL Last Edit by Kareen Peraza [facility] on 08/11/24 13:11 UA Glucose 1000 mg/dL Last Edit by Kareen Peraza [facility] on 08/11/24 13:11 Results Reviewed Results Reviewed: Laboratory Last Values Urine pH (Auto) 5.0 08/11/24 13:10 Specific [place] (Auto) 1.015 08/11/24 13:10 Urine Protein (Auto) 0 mg/dL 08/11/24 13:10 Glucose (UA)(Auto) 1000 mg/dL 08/11/24 13:10 Urine Ketones (Auto) Positive 08/11/24 13:10 Urine Blood (Auto) 0 Ric/uL 08/11/24 13:10 Urine Nitrite (Auto) Positive 08/11/24 13:10 Urine Bilirubin (Auto) 4 mg/dL 08/11/24 13:10 Urine Urobilinogen (Auto) 8 mg/dL 08/11/24 13:10 Leukocyte Esterase (Auto) 500 Reena/uL 08/11/24 13:10 Assessment & Plan Assessment & Plan (1) Cystitis: Code(s): N30.90 - Cystitis, unspecified without hematuria Plan: Rapid U/A positive Ordered Macrobid Will send urine for C&S. Orders: Orders AMB Urinalysis Automated Today Z13.9 - Encounter for screening, unspecified UA CC w/rflx Micro + Cult Today N30.90 - Cystitis, unspecified without hematuria Medications: New nitrofurantoin monohyd/m-cryst 100 mg (Macrobid) must administer with a meal/food 100 mg PO Q12H 14 caps 0RF 7 days N30.90 - Cystitis, unspecified without hematuria Coding Level of Care Code Est Pt Level 4 (12389) Diagnoses Cystitis N30.90 Time Spent (min) 20
[2024-08-11 13:05] VITALS: BP 122/80; PULSE 68; TEMP 36.6; O2SAT 93
--- OUTSIDE RECORDS SUMMARY | 2024-08-11 14:03 | XMS_ITS ---
Author Organization [facility] Address [address] [place] [address] Care Team Providers Care Corporate Tutor Name Role Phone Venkatesh Lindo MD Primary Care Provider Roderick Jennings [phone] REASON FOR VISIT screening,hx polyps Encounters Encounter Location Date Provider Diagnosis [facility] [place] [address] [place], [place] [phone] 07/04/2024 Roderick Holcomb Plan Of Treatment No Information Progress Notes * JAYA ISLAS CDOB: [birth year] (74 yo F)Acc No.[id number]:07/04/2024 COLON WITH MAC Patient:?JAYA ISLAS Provider:?Roderick Holcomb MD :1950???Age:74 Y???Sex:Female D ate:07/04/2024 Address:[address] [place], [place] [phone] Pcp:Venkatesh Lindo MD Subjective: * Chief Complaints: * ???1. Screening,hx polyps. * Medical History:? Objective: * Vitals:? Assessment: Plan: * Treatment: * * The named appointment provid er may or may not be the originator of this progress note, and it is not deemed complete until electronically signed by the appointment provider. Sign off status: Pending * Provider:?Roderick Holcomb MD Date:? 025 Generated for Chloéi velma/Famaryamg/eTransmitting on:?08/11/2024 02:03 PM EDT
--- OUTSIDE RECORDS SUMMARY | 2024-08-11 14:03 | XMS_ITS | Patient Health Record ---
Author Organization [facility] Address [address] [place] [address] Care Team Providers Care Wood Carver Hand Name Role Phone Venkatesh Lindo MD Primary Care Provider Roderick Jennings Unavailable [phone] Allergies No Known Allergies Results Component Value Reference Range Notes Glucose, Whole Blood Reviewed date:07/25/2024 03:21:52 PM Interpretation: Performing Lab:[facility], [address] [place] [phone] Notes/Report: Glucose, Whole Blood 203 60-115 mg/dL METER # : [id number] Reason For Referral No Information Medications Medication SIG (Take, Route, Frequency, Duration) Notes Start Date End Date Status ProAir HFA 108 (90 Base) MCG/ACT 2 puffs as needed Inhalation every 6 hrs/prn Activ e glipiZIDE 5 MG TAKE TWO TABLETS BY MOUTH TWICE A DAY Oral for 30 Active metFORMIN HCl ER 500 MG Oral for 90 Active Lisinopril 5 MG Oral for 90 Ac tive Vitamin D 2000 UNIT 1 tablet Orally Once a day Active Lovastatin 10 MG TAKE ONE TABLET BY M OUTH ONCE DAILY Oral for 90 Active Immunizations Vaccine Route Administration Date Status Comme nts Influenza Unknown 02/12/2018 Administered Influenza Unknown 03/04/2024 Administered Problems Problem Type SNOMED Code ICD Code Onset Dates Problem Status W/U Status Risk Notes Problem 978164332 Encounter for screening for malignant neoplasm of colon (Z12.11) Active confirmed Problem 170218476 Family history of colon cancer (Z80.0) Active confirmed Problem 877836777 Long-term use of high-risk medication (Z79.899) Active confirmed Vital Signs Temperature 98.0 degrees Fahrenheit 03/12/2024 Blood pressure diastolic 00 mm Hg 03/12/2024 Height 59 in 03/12/2024 Blood pressure systolic 000 mm Hg 03/12/2024 Weight 147 lb 2 oz lbs 03/12/2024 BMI 29.71 kg/m2 03/12/2024 Encounters Encounter Location Date Provider Diagnosis [facility] [place] [address] [place] [address], [place] [phone] 07/25/2024 Roderick Holcomb Colon cancer screeni ng Z12.11 ; Family history of colon cancer Z80.0 ; Diverticulosis of large intestine without perforation or abscess without bleeding K57.30 and Other hemorrhoids K64.8 [facility] [address] [place] [address] 03/12/2024 Roderick Holcomb Encounter for screen ing for malignant neoplasm of colon Z12.11 ; Long-term use of high-risk medication Z79.899 and Family history of colon cancer Z80.0 [facility] [address] [place] [phone] 07/03/2024 Roderick Holcomb Assessments Encounter Date Diagnosis (ICD Code) Assessment Notes Treatment Notes Treatment Clinical Notes Section Notes 07/25/2024 Colon cancer screening (ICD-10 - Z12.11) 07/25/2024 Family history of colon cancer (ICD-10 - Z80.0) 03/12/2024 Encounter for screening for malignant neoplasm of colon (ICD-10 - Z12.11) Do not use the Metformin or Glipizide the night before or on the morning of the colonoscopy Overall, Jaya appears quite well. I did recommend a followup colonoscopy further screening given her last colonoscopy being over 5 years ago and her significant family history of a young sibling having had colon cancer. We did review the rationale for the colonoscopy in regard to colon cancer prevention. Full consent is obtained for this, including risks of bleeding and perforation. The procedure will be done with monitored anesthesia care. She was given the below instructions regarding adjustment of her medications for the procedure. Jaya was comfortable with this plan. Thank you again for allowing me to participate in Jaya's care. I shall continue to keep you advised of her progress. 03/12/2024 Long-term use of high-risk medication (ICD-10 - Z79.899) Overall, Jaya appears quite well. I did recommend a followup colonoscopy further screening given her last colonoscopy being over 5 years ago and her significant family history of a young sibling having had colon cancer. We did review the rationale for the colonoscopy in regard to colon cancer prevention. Full consent is obtained for this, including risks of bleeding and perforation. The procedure will be done with monitored anesthesia care. She was given the below instructions regarding adjustment of her medications for the procedure. Jaya was comfortable with this plan. Thank you again for allowing me to participate in Jaya's care. I shall continue to keep you advised of her progress. 07/25/2024 Diverticulosis of large intestine without perforation or abscess without bleeding (ICD-10 - K57.30) 03/12/2024 Family history of colon cancer (ICD-10 - Z80.0) Overall, Jaya appears quite well. I did recommend a followup colonoscopy further screening given her last colonoscopy being over 5 years ago and her significant family history of a young sibling having had colon cancer. We did review the rationale for the colonoscopy in regard to colon cancer prevention. Full consent is obtained for this, including risks of bleeding and perforation. The procedure will be done with monitored anesthesia care. She was given the below instructions regarding adjustment of her medications for the procedure. Jaya was comfortable with this plan. Thank you again for allowing me to participate in Jaya's care. I shall continue to keep you advised of her progress. 07/25/2024 Other hemorrhoids (ICD-10 - K64.8) Plan Of Treatment Future Test Test Name Order Date COLONOSCOPY 02/28/2013 COLONOSCOPY 04/17/2018 COLONOSCOPY 03/12/2024 Insurance Providers Payer Name Payer Address Payer Phone Subscriber Number Group Number Insured Name Patient Relationship to Insured Coverage Start Date Coverage End Date MEDICARE OF [place] [address] [place] [address] [id number] JOSE JAYA Coronado Self - patient is the insured MED[employer] ATTN CLAIMS [address] [place] [address] [id number] JOSE JAYA Coronado Self - patient is the insured Medical (General) History Medical History History ICD Code Screening colonoscopies 10-10 and 2001 neg. 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
--- OUTSIDE RECORDS SUMMARY | 2024-08-11 14:03 | XMS_ITS ---
Author Organization [facility] Address [address] [place] [address] Care Team Providers Care Runner Out Name Role Phone Venkatesh Lindo MD Primary Care Provider Roderick Jennings [phone] REASON FOR VISIT FYI Encounters Encounter Location Date Provider Diagnosis [facility] [address] [place] [address] 07/03/2024 Roderick Holcomb Plan Of Treatment No Information Progress Notes * JAYA ISLAS CDOB: [birth year] (74 yo F)Acc No.[id number]:07/03/2024 Patient:?JAYA ISLAS Aleks :1950???Age:74 Y???Sex:Female Address:[address] [place] [address] * true * Date:? Generated for Chloéi velma/Katy/eTransmitting on:?08/11/2024 02:03 PM EDT
--- OUTSIDE RECORDS SUMMARY | 2024-08-11 14:04 | XMS_ITS ---
Author Organization [facility] Address [address] [place] [address] Care Team Providers Care Corporate Logistics Manager Name Role Phone Venkatesh Lindo MD Primary Care Provider Roderick Jennings [phone] REASON FOR VISIT screening,hx polyps Encounters Encounter Location Date Provider Diagnosis [facility] [place] [address] [place], [place] [phone] 07/25/2024 Roderick Holcomb Colon cancer scree moncho [...] JAYA ISLAS CDOB: [birth year] (74 yo F)Acc No.[id number]:07/25/2024 COLON WITH MAC Patient:?PITAVÍCTOR JAYA Fink Provider:?Roderick Holcomb MD :1950???Age:74 Y???Sex:Female D ate:07/25/2024 [address] [facility] [address] [facility] Pcp:Venkatesh Lindo MD Subjective: * Chief Complaints: * ???1. Screening,hx polyps. * Medical History:? Objective: * Vitals:? Assessment: * Assessment: 1.?Colon cancer screening - Z12.11 (Primary)???2.?Family history of colon cancer - Z80.0???3.?Diverticulosis of large intestine without perforation or abscess without bleeding - K57.30???4.?Other hemorrhoids - K64.8??? Plan: * Treatment: * Procedure Codes:?G0105 COLOR EC CANCR SCR; COLNSCPY HI RISK, 0529F INTRVL 3+YRS PTS CLNSCP DOCD, 0528F RCMND FLW-UP 10 YRS DOCD * * The named appointment provid er may or may not be the originator of this progress note, and it is not deemed complete until electronically signed by the appointment provider. Sign off status: Pending * Provider:?Roderick Holcomb MD Date:? 025 Generated for Cristina carreon/Katy/eTransmitting on:?08/11/2024 02:03 PM EDT
== END 2024-08-11 14:08 | disposition home or self-care (01) ==
PROVIDERS: PCP Internal Medicine; Visit Provider Nurse Practitioner Family
DX: N30.90 Cystitis, unspecified without hematuria (principal); Z13.9 Encounter for screening, unspecified

== ENCOUNTER 2024-08-29 09:26 | Outpatient (AMB) | payer MEDICARE, SELFPAY ==
--- NOTE | 2024-08-29 09:39 | MHC.PC.OV ---
Vital Signs 08/29/24 09:49 Height 4 ft 10 in Weight 65.771 kg BMI 30.3 BP 120/80 Blood Pressure Location Lt brachial Position Sitting Pulse 57 Pulse Source Pulse Oximeter Temp 97.5 F Temp Source Axillary Pulse Oximetry (%) 97 Oxygen Delivery Method Room Air Intake Visit Reasons: Routine Brim Ironer Hand Required: No Accompanied by: Self / Same As Patient Allergies No Known Allergies Allergy (Verified 08/29/24 09:39) Medication List - Last Reconciled 08/29/24 by SHERRY Cueto albuterol sulfate 90 mcg/actuation 2 puffs inhalation QID PRN blood sugar diagnostic (TechliciousTouch Ultra Test strips) As directed budesonide-formoterol 160-4.5 mcg/actuation 2 puffs PO QAM glipizide 10 mg (2 x 5 mg) PO BID lancets (TechliciousTouch Delica Plus Lancet) As directed lancets (TechliciousTouch UltraSoft Lancets) As directed lisinopril 5 mg PO DAILY lovastatin 10 mg PO DAILY metformin ER 500 mg PO DAILY Tobacco use date assessed: 08/29/24 Fall risk assessment: 1 Fall in past year Last assessed Fall Risk: 08/29/24 Dental Screening Dental Screen Date: 08/29/24 Did you have a dental visit in the last 12 months?: Yes Did you have a dental problem in the last 6 months where you did not have access to dental care?: No HPI HPI Comments History of Present Illness Details 74-year-old female with history of diz-wkeduol-ikhzvvyyz type 2 diabetes, hypertension, hyperlipidemia, persistent asthma presents to the office today for routine follow-up. Last hemoglobin A1c uncontrolled at 8.7%. Has been checking glucose levels on a daily basis with average glucose 200s, sometimes in the 300s. Follows annually for diabetic eye exam and diabetic foot exam. She acknowledges she does not follow a diabetic diet though is compliant with medications. She is noncompliant with maintenance inhalers and as a result as using her albuterol at least once daily if not twice daily. She does deny any shortness breath, cough, or wheezing currently. Does not check blood pressure at home but reasonably controlled in the office. She is a former smoker. [facility] Medical History Cystitis Elevated cholesterol HTN (hypertension) Diabetes mellitus Asthma Surgical History H/O colonoscopy (~07/25/24) Status post surgical removal and fulguration of bladder neoplasm Family History Mother No problems noted. Father No problems noted. Social History Housing: House Patient Tobacco Use Status: Former Tobacco user e-Cigarette/Vaping Use: Former Use service: No Current occupational status: retired Cognitive needs: No Hearing needs: No Vision needs: Yes (rx glasses) Questionnaire PHQ-9 Over the last 2 weeks, how often have you been bothered by any of the following problems? 1. Little interest or pleasure in doing things: not at all 2. Feeling down, depressed, or hopeless: not at all 3. Trouble falling or staying asleep, or sleeping too much: not at all 4. Feeling tired or having little energy: not at all 5. Poor appetite or overeating: not at all 6. Feeling bad about yourself - or that you are a failure or have let yourself or your family down: not at all 7. Trouble concentrating on things, such as reading the newspaper or watching television: not at all 8. Moving or speaking so slowly that other people could have noticed. Or the opposite - being so fidgety or restless that you have been moving around a lot more than usual: not at all 9. Thoughts that you would be better off or of hurting yourself in some way: not at all Total score: 0 Source: Developed by Drs. Roderick Palma, Rama Tracey, Omar Coreas and colleagues, with an educational greer from [employer]. Thrive Questionnaire Date Thrive assessed: 08/29/24 I am a: Patient Within the past 12 months, did the food you bought not last and you didn't have the money to get more?: Never true Within the past 12 months, did you worry whether your food would run out before you got money to buy more?: Never true Do you have trouble paying for medicines?: No Do you have trouble getting transportation to medical appointments?: No Do you have trouble paying your heating and electricity bill?: No Do you have trouble taking care of your child, family member or friend?: No Do you have trouble with day-to-day activities such as bathing, preparing meals, shopping, managing finances, etc.?: No Are you currently unemployed and looking for a job?: No Are you interested in more education?: No THRIVE Score: 0 AUDIT C Alcohol Use Questionnaire (AUDIT-C) 1. How often do you have a drink containing alcohol?: Monthly or less 3. How often do you have six or more drinks on one occasion?: Less than monthly Total Score: 2 RANDALL-7 AMB Questionnaire RANDALL-7 Date RANDALL - 7 assessed: 08/29/24 Feeling nervous, anxious, or on edge: 0 = Not at all Not being able to stop or control worryin = Not at all Worrying too much about different things: 0 = Not at all Trouble relaxin = Not at all Being so restless that it is hard to sit still: 0 = Not at all Becoming easily annoyed or irritable: 0 = Not at all Feeling afraid as if something awful might happen: 0 = Not at all Total RANDALL-7 score (0-4 normal; 5-9 mild; 10-14 moderate; 15-21 severe): 0 Source: Developed by Drs. Roderick Palma, Rama Tracey, Omar Coreas and colleagues, with an educational greer from [employer]. Review of Systems Const All systems reviewed & are unremarkable except as noted in HPI and below Physical exam (Primary Care) Vital Signs: Last Vital Signs Temp 97.5 F 08/29/24 09:49 Pulse 57 08/29/24 09:49 BP 120/80 08/29/24 09:49 Pulse Ox 97 08/29/24 09:49 Oxygen Delivery Method Room Air 08/29/24 09:49 Constitutional - Awake and Alert, No apparent distress Eyes - PERRLA, EOMI Cardiovascular - S1S2, RRR, No edema Respiratory - Normal lung expansion, Normal respiratory effort, No respiratory distress, scattered wheezing bilaterally, otherwise clear to auscultation Extremities - no calf tenderness bilaterally, no swelling Skin - Warm/Dry Neurological - Alert & oriented x3 Psychological - Appropriate affect BMI result Body Mass Index 30.3 Tobacco/Smoking Status: Tobacco use Status Tobacco use date assessed 08/29/24 08/29/24 09:41 Patient Tobacco Use Status Former Tobacco user 08/29/24 09:41 e-Cigarette/Vaping Use Former Use 08/29/24 09:58 PHQ-9: PHQ-9 Score PHQ-9: Total score 0 08/29/24 09:59 Thrive Assessment: Date of Thrive Assessment Date Thrive assessed 08/29/24 08/29/24 09:41 Coding Level of Care Code Tele New Pt Level 4 (02449) Complex EM visit Add On G2211 Diagnoses Hyperlipidemia E78.5 HTN (hypertension) I10 Asthma J45.909 Asthma persistence: persistent Asthma severity: unspecified severity Type 2 diabetes mellitus E11.9 Assessment & Plan Assessment & Plan (1) Hyperlipidemia: Code(s): E78.5 - Hyperlipidemia, unspecified Category: Medical Plan: Uncontrolled, goal LDL less than 70. She will continue lovastatin 10 mg daily. Discussed lifestyle modifications (2) HTN (hypertension): Code(s): I10 - Essential (primary) hypertension Plan: Well-controlled. Continue lisinopril 5 mg. Low-sodium diet. Reviewed last renal function and electrolyte levels which were reassuring (3) Asthma: Code(s): J45.909 - Unspecified asthma, uncomplicated Qualifiers: Asthma persistence: persistent Asthma severity: unspecified severity Plan: Uncontrolled. Discussed goal for asthma management is using rescue inhaler less than twice weekly. Counseled on resuming maintenance inhalers with compliance. Use rescue inhaler only as needed for shortness of breath and wheezing. If still uncontrolled at follow-up visit, will consider referral for PFT (4) Type 2 diabetes mellitus: Code(s): E11.9 - Type 2 diabetes mellitus without complications Category: Medical Plan: Uncontrolled with last hemoglobin A1c of 8.7%. Will update hemoglobin A1c today. Counseled on diabetic diet as well as increased activity level. She is also given written education as well as a website to review from ADA regarding diabetic diet and meal recommendations. Check fasting glucose levels daily with goal less than 130. We will continue metformin 500 mg ER and glipizide 10 mg twice daily for now, medication to be adjusted as appropriate pending labs. Continue with annual eye exams and foot exams. Plan Follow-up in 3 months with labs completed prior to next visit. Reviewed healthcare proxy and MOLST form and patient given forms to have completed at home and returned to the office [email or web address] Orders: Orders Hemoglobin A1c 10 Weeks E11.9 - Type 2 diabetes mellitus without complications, E78.5 - Hyperlipidemia, unspecified, I10 - Essential (primary) hypertension Hemoglobin A1c Today E11.9 - Type 2 diabetes mellitus without complications Basic Metabolic Panel 10 Weeks E11.9 - Type 2 diabetes mellitus without complications, E78.5 - Hyperlipidemia, unspecified, I10 - Essential (primary) hypertension Lipid Panel 10 Weeks E11.9 - Type 2 diabetes mellitus without complications, E78.5 - Hyperlipidemia, unspecified, I10 - Essential (primary) hypertension Medications: New lovastatin 10 mg PO DAILY 90 tabs 1RF budesonide-formoterol 160-4.5 mcg/actuation 2 puffs PO QAM 10.2 grams 6RF glipizide 10 mg (2 x 5 mg) PO BID 90 tabs 1RF lisinopril 5 mg PO DAILY 90 tabs 1RF
[2024-08-29 09:49] VITALS: BP 120/80; PULSE 57; TEMP 36.4; O2SAT 97; BMI 30.3
== END 2024-08-29 10:24 | disposition home or self-care (01) ==
LOC: HO.HMCHD 09:26
PROVIDERS: PCP Internal Medicine; Visit Provider Physician Assistant
DX: E11.69 Type 2 diabetes mellitus with other specified complication (principal); E78.5 Hyperlipidemia, unspecified; I10 Essential (primary) hypertension; J45.909 Unspecified asthma, uncomplicated

== ENCOUNTER → 2024-08-29 09:26 | Outpatient (BNVA) | payer MEDICARE, SELFPAY | PROVIDERS: PCP Internal Medicine; Visit Provider Physician Assistant | DX: E78.5 Hyperlipidemia, unspecified (principal); I10 Essential (primary) hypertension; J45.909 Unspecified asthma, uncomplicated; E11.9 Type 2 diabetes mellitus without complications; Z79.84 Long term (current) use of oral hypoglycemic drugs; Z79.899 Other long term (current) drug therapy | CPT/HCPCS: 99212 ==

== ENCOUNTER 2024-08-29 10:34 | Outpatient (REF) | payer MEDICARE, SELFPAY ==
--- OUTSIDE RECORDS SUMMARY | 2024-08-29 11:40 | XMS_ITS | Patient Health Record ---
Author Organization [facility] Address [address] [place] [address] Care Team Providers Care Scarfing Machine Operator Name Role Phone Venkatesh Lindo MD Primary Care Provider Roderick Jennings Unavailable [phone] Allergies No Known Allergies Results Component Value Reference Range Notes Glucose, Whole Blood Reviewed date:07/25/2024 03:21:52 PM Interpretation: Performing Lab:[facility], [address] [place] [phone] Notes/Report: Glucose, Whole Blood 203 60-115 mg/dL METER # : [id number] Reason For Referral No Information Medications Medication [...] Problem Status W/U Status Risk Notes Problem 508935373 Encounter for screening for malignant neoplasm of colon (Z12.11) Active confirmed Problem 770489323 Family history of colon cancer (Z80.0) Active confirmed Problem 639396297 Long-term use of high-risk medication (Z79.899) Active confirmed Vital Signs Temperature 98.0 degrees Fahrenheit 03/12/2024 Blood pressure diastolic 00 mm Hg 03/12/2024 Height 59 in 03/12/2024 Blood pressure systolic 000 mm Hg 03/12/2024 Weight 147 lb 2 oz lbs 03/12/2024 BMI 29.71 kg/m2 03/12/2024 Encounters Encounter Location Date Provider Diagnosis [facility] [place] Out[place] [address] [place], [place] [phone] 07/25/2024 Roderick Holcomb Colon cancer screeni ng Z12.11 ; Family history of colon cancer Z80.0 ; Diverticulosis of large intestine without perforation or abscess without bleeding K57.30 and Other hemorrhoids K64.8 [facility] [address] [place] [phone] 03/12/2024 Roderick Holcomb Encounter for screen ing for malignant neoplasm of colon Z12.11 ; Long-term use of high-risk medication Z79.899 and Family history of colon cancer Z80.0 [facility] [address] [place] [phone] 07/03/2024 Roderick Holcomb Assessments Encounter Date Diagnosis [...] Date MEDICARE OF [place] [address] [facility] [place] [address] [id number] JOSE JAYA Coronado Self - patient is the insured MED[employer] ATTN CLAIMS [address] [place] [address] [id number] JOSE JAYA Coronado Self - patient is the insured Medical (General) History Medical History History ICD Code Screening colonoscopies 10-10 and 2001 neg. 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
--- OUTSIDE RECORDS SUMMARY | 2024-08-29 11:40 | XMS_ITS ---
Author Organization [facility] Address [address] [place] [address] Care Team Providers Care Assembler Watch Train Name Role Phone Venkatesh Lindo MD Primary Care Provider Roderick Jennings [phone] REASON FOR VISIT screening,hx polyps Encounters Encounter Location Date Provider Diagnosis [facility] [place] [place] Out[place] [address] [place], [place] [phone] 07/04/2024 Roderick Holcomb Plan Of Treatment No Information Progress Notes * JAYA ISLAS CDOB: [birth year] (74 yo F)Acc No.[id number]:07/04/2024 COLON WITH MAC Patient:?JAYA ISLAS Provider:?Roderick Holcomb MD :1950???Age:74 Y???Sex:Female D ate:07/04/2024 Address:[address] [place], [place] [phone] Pcp:Venkatesh Lindo MD Subjective: * Chief Complaints: [...] Provider:?Roderick Holcomb MD Date:? 025 Generated for Clhoéi velma/Famaryamg/eTransmitting on:?08/29/2024 11:40 AM EDT
--- OUTSIDE RECORDS SUMMARY | 2024-08-29 11:40 | XMS_ITS ---
Author Organization [facility] Address [address] [place] [address] Care Team Providers Care Hybrid Technologist Name Role Phone Venkatesh Lindo MD Primary Care Provider Roderick Jennings [phone] REASON FOR VISIT FYI Encounters Encounter Location Date Provider Diagnosis [facility] [address] [place] [address] 07/03/2024 Roderick Holcomb Plan Of Treatment No Information Progress Notes * JAYA ISLAS CDOB: [birth year] (74 yo F)Acc No.[id number]:07/03/2024 Patient:?JAYA ISLAS Aleks :1950???Age:74 Y???Sex:Female Address:[address] [place] [address] * true * Date:? Generated for Chloéi velma/Katy/eTransmitting on:?08/29/2024 11:40 AM EDT
--- OUTSIDE RECORDS SUMMARY | 2024-08-29 11:41 | XMS_ITS ---
Author Organization [facility] Address [address] [place] [address] Care Team Providers Care Clay Artist Name Role Phone Venkatesh Lindo MD Primary Care Provider Roderick Jennings [phone] REASON FOR VISIT screening,hx polyps Encounters Encounter Location Date Provider Diagnosis [facility] [place] [address] [place], [place] [phone] 07/25/2024 Roderick Holcomb Colon cancer scree moncho [...] JAYA ISLAS CDOB: [birth year] (74 yo F)Acc No.[id number]:07/25/2024 COLON WITH MAC Patient:?PITAVÍCTOR JAYA Fink Provider:?Roderick Holcomb MD :1950???Age:74 Y???Sex:Female D ate:07/25/2024 Address[address] [facility] [address] Pcp:Venktaesh Lindo MD Subjective: * Chief Complaints: * [...] MD Date:? 025 Generated for Cristina carreon/Katy/eTransmitting on:?08/29/2024 11:40 AM EDT
[2024-08-29 12:05] LABS: Estimated Average Glucose 223 mg/dL; Hemoglobin A1C 284.7007 umol/L; Hemoglobin A1c % 9.4 % (<6.0); Total Hemoglobin (HGBA1C) 3577.3926 umol/L
== END 2024-08-29 10:35 | disposition home or self-care (01) ==
LOC: HO.10HDL 10:34
PROVIDERS: Visit Provider Physician Assistant
DX: E11.9 Type 2 diabetes mellitus without complications (principal); E78.5 Hyperlipidemia, unspecified; I10 Essential (primary) hypertension; J45.909 Unspecified asthma, uncomplicated; Z79.84 Long term (current) use of oral hypoglycemic drugs; Z79.899 Other long term (current) drug therapy
CPT/HCPCS: 36415; 83036; 96127; 99212

== ENCOUNTER 2024-12-22 08:07 | Outpatient (REF) | payer MEDICARE, SELFPAY ==
--- OUTSIDE RECORDS SUMMARY | 2024-12-22 08:17 | XMS_ITS | Patient Health Record ---
Author Organization [facility] Address [address] [place] [address] Care Team Providers Care Group Captain Name Role Phone Belgica (RETIRED) Venkatesh WOLFF Primary Care Provide r Roderick Orellana Unavailable [phone] Allergies No Known Allergies Results Component Value Reference Range Notes Glucose, Whole Blood Reviewed date:07/25/2024 03:21:52 PM Interpretation: Performing Lab:[facility], [address] [place] [id number] Notes/Report: Glucose, Whole Blood 203 60-115 mg/dL METER # : [id number] Reason For Referral No Information Medications Medication [...] Problem Status W/U Status Risk Notes Problem [id number] Encounter for screening for malignant neoplasm of colon (Z12.11) Active confirmed Problem 789983785 Family history of colon cancer (Z80.0) Active confirmed Problem 860801605 Long-term use of high-risk medication (Z79.899) Active confirmed Vital Signs Temperature 98.0 degrees Fahrenheit 03/12/2024 Blood pressure diastolic 00 mm Hg 03/12/2024 Height 59 in 03/12/2024 Blood pressure systolic 000 mm Hg 03/12/2024 Weight 147 lb 2 oz lbs 03/12/2024 BMI 29.71 kg/m2 03/12/2024 Encounters Encounter Location Date Provider Diagnosis [facility] [address] [place], [place] [phone] 07/25/2024 Roderick Holcomb Colon cancer screeni ng Z12.11 ; Family history of colon cancer Z80.0 ; Diverticulosis of large intestine without perforation or abscess without bleeding K57.30 and Other hemorrhoids K64.8 [facility] [address] [place] [phone] 03/12/2024 Roderick Holcomb Encounter for screen ing for malignant neoplasm of colon Z12.11 ; Long-term use of high-risk medication Z79.899 and Family history of colon cancer Z80.0 [facility] [address] [facility] [address] [place] [phone] 07/03/2024 Roderick Holcomb Assessments Encounter Date Diagnosis [...] Date MEDICARE OF [place] [address] [place] [address] [phone] [id number] JOSE JAYA Coronado Self - patient is the insured [employer] ATT[employer] CLAIMS [address] [place] [address] [phone] [id number] JOSE JAYA Coronado Self - patient is the insured Medical (General) History Medical History History ICD Code Screening colonoscopies 10-10 -2007 and 2001 neg. except for hyperplastic polyps, mild diverticulosis, and small internal hemorrhoids Asthma Denies NM,CVA,renal disease NIDDM Negative screening colonoscopy in and 05/2018 Hypercholesterolemia Surgical History Surgery Date(Month/Year) Benign tumor removed from bladder---cyst oscopy
[2024-12-22 10:50] LABS: Hemoglobin A1C 166.9619 umol/L; Total Hemoglobin (HGBA1C) 3385.4790 umol/L
[2024-12-22 10:55] LABS: Anion Gap 12 (12-20); Blood Urea Nitrogen 36 mg/dL (9-16); Calcium 9.6 mg/dL (8.4-10.2); Carbon Dioxide 26 mmol/L (22-29); Chloride 104 mmol/L (96-108); Cholesterol 180 mg/dL (<200); Estimated Glomerular Filt Rate 49; HDL Cholesterol 57 mg/dL (>40); Potassium 4.1 mmol/L (3.3-5.1); Sodium 138 mmol/L (135-145); Triglycerides 100 mg/dL (<150)
== END 2024-12-22 08:08 | disposition home or self-care (01) ==
LOC: HO.HMGCLDS 08:07
PROVIDERS: PCP Physician Assistant; Visit Provider Physician Assistant
DX: E11.9 Type 2 diabetes mellitus without complications (principal); E78.5 Hyperlipidemia, unspecified; I10 Essential (primary) hypertension
CPT/HCPCS: 36415; 80048; 80061; 83036

== ENCOUNTER 2024-12-26 10:58 | Outpatient (AMB) | payer MEDICARE, SELFPAY ==
--- OUTSIDE RECORDS SUMMARY | 2024-07-04 06:30 | XMS_ITS ---
Author Organization [facility] Address [address] [place] [address] Care Team Providers Care Transcribing Machine Operator Name Role Phone Belgica (RETIRED) Venkatesh WOLFF Primary Care Provide Roderick Martinez [phone] REASON FOR VISIT screening,hx polyps Encounters Encounter Location Date Provider Diagnosis [facility] Outpatient [address] [place] [phone] 07/04/2024 Roderick Holcomb Plan Of Treatment No Information Progress Notes * JAYA ISLAS CDOB: [birth year] (74 yo F)Acc No.[id number]:07/04/2024 COLON WITH MAC Patient: JAYA MOLINA Provider: Mika Holcomb MD :1950 A ge:74 Y S ex:Female Date:07/04/2024 Address:[address] [place], [place] [phone] Pcp:Venkatesh Lindo (RETIRED )MD Subjective: * Chief [...] MD Date: 0 07/04/2024 Generated for Chloéi ng/Faxing/eTransmitting on: 0 12/26/2024 11:41 AM EDT
--- OUTSIDE RECORDS SUMMARY | 2024-07-25 06:30 | XMS_ITS ---
Author Organization [facility] Address [address] [place] [address] Care Team Providers Care Junior Automation Engineer Name Role Phone Belgica (RETIRED) , Venkatesh Primary Care Provide Roderick Martinez [phone] REASON FOR VISIT screening,hx polyps Encounters Encounter Location Date Provider Diagnosis [facility] Outpatient [address] [place], [place] [phone] 07/25/2024 Roderick Holcomb Colon cancer scree moncho [...] JAYA ISLAS CDOB: [birth year] (74 yo F)Acc No.[id number]:07/25/2024 COLON WITH MAC Patient: JAYA MOLINA Provider: Mika Holcomb MD :1950 A ge:74 Y S ex:Female Date:07/25/2024 Address:[address] [facility] [address] [facility] Pcp:Venkatesh Lindo (RETIRED )MD Subjective: * Chief [...] 0 07/25/2024 Generated for Cristina carreon/Katy/Dickitting on: 0 12/26/2024 11:41 AM EDT
--- NOTE | 2024-12-26 11:04 | MHC.PC.OV ---
Vital Signs 12/26/24 11:22 12/26/24 11:42 Height 4 ft 10 in Weight 65.317 kg BMI 30.1 BP 150/72 H 136/72 Temp 97 F Temp Source Temporal Artery Scan Pulse Oximetry (%) 99 Oxygen Delivery Method Room Air Oxygen Flow Rate 66 Intake Visit Reasons: Routine / dr Lindo Risk And Compliance Analytics Director Required: No Accompanied by: Self / Same As Patient Allergies No Known Allergies Allergy (Verified 12/26/24 11:04) Tobacco use date assessed: 08/29/24 Dental Screening Dental Screen Date: 08/29/24 HPI HPI Comments History of Present Illness Details 74-year-old female with history of type 2 diabetes, hypertension, hyperlipidemia, history of bladder cancer, osteopenia presents to the office today for management of chronic condition seemed to establish care. Type 2 diabetes- A1c improved to 6.7%. Was increased to 1000mg bid. Decreased back to 500mg BID end of October. Was having significant cramping and diarrhea with urgency. Continues on glipizide 10mg BID. Fasting glucose this am 117. 2hr after eating last night 94. HLD- on lovastatin 10mg daily HTN- BP initially 150/72, repeat 136/72. On lisinopril 5mg Bladder cancer- Following with Dr. Clark . S/p surgical removal and fulguration of bladder neoplasm. NAD 2020. Annual surveillance Asthma- mild interimttent. Occ albuterol use, no maintenance Concerns: Occ R hip pain- able to ambulate. Sitting too long exacerbates. Health Maintenance: Last screening mammogram 01/2024 with 1 year follow-up advised, scheduled Last DEXA scan 02/2024 Last screening colonoscopy 06/2024 to be continued on as needed basis ROS: General: No fevers, malaise, unintentional weight loss HEENT: No blurred vision, diplopia. No sore throat, nasal congestion, rhinorrhea, sinus pain, ear pain Cardiovascular: No chest pain, palpitations, or leg edema Respiratory: No shortness of breath, wheezing, cough GI: No abdominal pain, nausea, vomiting, diarrhea, constipation, melena, hematochezia : No dysuria, hematuria, increased urinary frequency, decreased urinary output MSK: No myalgia, back pain. see hpi Neuro: No headaches, weakness, paresthesias Skin: No rashes or lesions EXAM: Constitutional - Awake and Alert, No apparent distress Eyes - PERRL Cardiovascular - S1S2, RRR, No edema Respiratory - Normal lung expansion, Normal respiratory effort, No respiratory distress, CTA bilaterally Extremities - no calf tenderness bilaterally, no swelling Skin - Warm/Dry Neurological - Alert & oriented x3 Psychological - Appropriate affect [facility] Medical History (Updated 12/26/24 @ 11:40 by SHERRY Cueto) Osteopenia Cystitis Elevated cholesterol HTN (hypertension) Diabetes mellitus Asthma Surgical History H/O colonoscopy (~07/25/24) Status post surgical removal and fulguration of bladder neoplasm Family History Mother No problems noted. Father No problems noted. Social History Housing: House Patient Tobacco Use Status: Former Tobacco user e-Cigarette/Vaping Use: Former Use service: No Current occupational status: retired Cognitive needs: No Hearing needs: No Vision needs: Yes (rx glasses) Questionnaire Thrive Questionnaire Date Thrive assessed: 08/29/24 RANDALL-7 AMB Questionnaire RANDALL-7 Date RANDALL - 7 assessed: 08/29/24 Source: Developed by Drs. Roderick Palma, Rama Tracey, Omar Coreas and colleagues, with an educational greer from [employer]. Physical exam (Primary Care) Vital Signs: Last Vital Signs Temp 97 F 12/26/24 11:22 BP 136/72 12/26/24 11:42 Pulse Ox 99 12/26/24 11:22 Oxygen Delivery Method Room Air 12/26/24 11:22 Oxygen Flow Rate 66 12/26/24 11:22 BMI result Body Mass Index 30.1 Tobacco/Smoking Status: Tobacco use Status Tobacco use date assessed 08/29/24 12/26/24 11:05 Patient Tobacco Use Status Former Tobacco user 12/26/24 11:05 e-Cigarette/Vaping Use Former Use 12/26/24 11:05 Thrive Assessment: Date of Thrive Assessment Date Thrive assessed 08/29/24 12/26/24 11:05 Coding Level of Care Code Est Pt Level 4 (24393) Complex EM visit Add On G2211 Diagnoses Malignant neoplasm of urinary bladder, unspecified site C67.9 Bladder location: unspecified site HTN (hypertension) I10 Hyperlipidemia E78.5 Type 2 diabetes mellitus E11.9 Osteopenia M85.80 Assessment & Plan Assessment & Plan (1) Bladder cancer: Comment: Low-grade Code(s): C67.9 - Malignant neoplasm of bladder, unspecified Category: Medical Qualifiers: Bladder location: unspecified site Qualified Code(s): C67.9 - Malignant neoplasm of bladder, unspecified Plan: Continue following with Dr. Clark for annual surveillance with cystoscopy. Last note reviewed (2) HTN (hypertension): Code(s): I10 - Essential (primary) hypertension Category: Medical Plan: Controlled on recheck though borderline. Continue lisinopril 5 mg daily (3) Hyperlipidemia: Code(s): E78.5 - Hyperlipidemia, unspecified Category: Medical Plan: Reasonably controlled. Continue statin (4) Type 2 diabetes mellitus: Code(s): E11.9 - Type 2 diabetes mellitus without complications Category: Medical Plan: Controlled. Continue current therapies. Diabetic diet (5) Osteopenia: Comment: Frax 14.5 Code(s): M85.80 - Other specified disorders of bone density and structure, unspecified site Category: Medical Plan: Calcium and vitamin D. Weight bearing exercise. Plan Follow-up in the office in 4 months with last completed following visit Follow-up for screening mammogram as scheduled We will continue monitoring hip pain Orders: Orders Hemoglobin A1c 4 Months C67.9 - Malignant neoplasm of bladder, unspecified, E11.9 - Type 2 diabetes mellitus without complications, E78.5 - Hyperlipidemia, unspecified, I10 - Essential (primary) hypertension Microalbumin, Random (w Creat) 4 Months C67.9 - Malignant neoplasm of bladder, unspecified, E11.9 - Type 2 diabetes mellitus without complications, E78.5 - Hyperlipidemia, unspecified, I10 - Essential (primary) hypertension Basic Metabolic Panel 4 Months C67.9 - Malignant neoplasm of bladder, unspecified, E11.9 - Type 2 diabetes mellitus without complications, E78.5 - Hyperlipidemia, unspecified, I10 - Essential (primary) hypertension
[2024-12-26 11:22] VITALS: BP 150/72; TEMP 36.1; O2SAT 99; BMI 30.1
--- OUTSIDE RECORDS SUMMARY | 2024-12-26 11:41 | XMS_ITS | Patient Health Record ---
Author Organization [facility] Address [address] [place] [address] Care Team Providers Care President/Gm Production & Live Experiences Name Role Phone [employer] (RETIRED) Venkatesh WOLFF Primary Care Provide r Roderick Orellana Unavailable [phone] Allergies No Known Allergies Results Component Value Reference Range Notes Glucose, Whole Blood Reviewed date:07/25/2024 03:21:52 PM Interpretation: Performing Lab:[facility], [address] [place] [id number] Notes/Report: Glucose, Whole Blood 203 60-115 mg/dL METER # : [id number] Reason For Referral No Information Medications Medication [...] Problem Status W/U Status Risk Notes Problem [id number] Encounter for screening for malignant neoplasm of colon (Z12.11) Active confirmed Problem 283277784 Family history of colon cancer (Z80.0) Active confirmed Problem 567586147 Long-term use of high-risk medication (Z79.899) Active confirmed Vital Signs Temperature 98.0 degrees Fahrenheit 03/12/2024 Blood pressure diastolic 00 mm Hg 03/12/2024 Height 59 in 03/12/2024 Blood pressure systolic 000 mm Hg 03/12/2024 Weight 147 lb 2 oz lbs 03/12/2024 BMI 29.71 kg/m2 03/12/2024 Encounters Encounter Location Date Provider Diagnosis [facility] [place] [place] [facility] [address] [place], [place] [phone] 07/25/2024 Roderick Holcomb Colon cancer screeni ng Z12.11 ; Family history of colon cancer Z80.0 ; Diverticulosis of large intestine without perforation or abscess without bleeding K57.30 and Other hemorrhoids K64.8 [facility] [address] [place] [phone] 03/12/2024 Roderick Holcomb Encounter for screen ing for malignant neoplasm of colon Z12.11 ; Long-term use of high-risk medication Z79.899 and Family history of colon cancer Z80.0 [facility] [address] [place] [phone] 07/03/2024 Roderick Holcomb Assessments Encounter Date Diagnosis [...] Date MEDICARE OF [place] [address] [place] [address] [id number] JOSE JAYA Coronado Self - patient is the insured [employer] ATT[employer] CLAIMS [address] [place] [address] [id number] JOSE JAYA Coronado Self - patient is the insured Medical (General) History Medical History History ICD Code Screening colonoscopies 10-10 -2007 and 2001 neg. except for hyperplastic polyps, mild diverticulosis, and small internal hemorrhoids Asthma Denies [place],CVA,renal disease NIDDM Negative screening colonoscopy in and 05/2018 Hypercholesterolemia Surgical History Surgery Date(Month/Year) Benign tumor removed from bladder---cyst oscopy
[2024-12-26 11:42] VITALS: BP 136/72
== END 2024-12-26 11:49 | disposition home or self-care (01) ==
LOC: HO.HMCHD 10:59
PROVIDERS: PCP Internal Medicine; Visit Provider Physician Assistant
DX: C67.9 Malignant neoplasm of bladder, unspecified (principal); I10 Essential (primary) hypertension; E78.5 Hyperlipidemia, unspecified; E11.9 Type 2 diabetes mellitus without complications; M85.80 Other specified disorders of bone density and structure, unspecified site

== ENCOUNTER → 2024-12-26 10:58 | Outpatient (BNVA) | payer MEDICARE, SELFPAY | PROVIDERS: PCP Internal Medicine; Visit Provider Physician Assistant | DX: Z76.89 Persons encountering health services in other specified circumstances (principal); I10 Essential (primary) hypertension; E78.5 Hyperlipidemia, unspecified; E11.9 Type 2 diabetes mellitus without complications; M85.80 Other specified disorders of bone density and structure, unspecified site; J45.20 Mild intermittent asthma, uncomplicated; M25.551 Pain in right hip; Z85.51 Personal history of malignant neoplasm of bladder; Z79.84 Long term (current) use of oral hypoglycemic drugs; Z79.899 Other long term (current) drug therapy | CPT/HCPCS: 99212 ==

== ENCOUNTER 2025-02-13 10:47 | Outpatient (REF) | payer MEDICARE, SELFPAY ==
--- NOTE | ~2025-02-13 | MM_ITS ---
EXAMINATION: MM SCREENING DIGITAL BREAST TOMOSYNTHESIS, BILATERAL CLINICAL INFORMATION: Screening. Asymptomatic. COMPARISON: Mammography: Comparison is made with available priors TECHNIQUE: Digital breast mammography with tomosynthesis is performed in both the craniocaudal and mediolateral oblique views along with computer-aided detection (CAD). FINDINGS: There are scattered areas of fibroglandular density. There are no significant masses, abnormal calcifications, or other abnormalities. MM/MM tomosynthesis screening BI IMPRESSION: No mammographic evidence of malignancy. ASSESSMENT: BI-RADS Category 1: Negative RECOMMENDATION: Routine annual mammography screening. 1 year F/U This examination should not preclude the clinical evaluation of a suspicious palpable abnormality. This patient's information was entered into a reminder system with a target due date for their next mammogram. Electronically signed by: Lay Ellis DO 02/16/2025 05:27 PM EDT
== END 2025-02-13 10:48 | disposition home or self-care (01) ==
LOC: HO.MAMMO 10:47
PROVIDERS: PCP Physician Assistant; Visit Provider Internal Medicine
DX: Z12.31 Encounter for screening mammogram for malignant neoplasm of breast (principal)
CPT/HCPCS: 77063; 77067

== ENCOUNTER → 2025-02-13 11:00 | Outpatient (BNV) | payer MEDICARE, SELFPAY | PROVIDERS: PCP Physician Assistant; Visit Provider Internal Medicine | DX: Z12.31 Encounter for screening mammogram for malignant neoplasm of breast (principal) | CPT/HCPCS: 77063; 77067 ==

== ENCOUNTER 2025-03-06 09:44 | Outpatient (AMB) | payer MEDICARE, SELFPAY ==
--- OUTSIDE RECORDS SUMMARY | 2024-07-04 05:30 | XMS_ITS ---
Author Organization [facility] Address [address] [place] [address] Care Team Providers Care Engineering Operator Name Role Phone Belgica (RETIRED) Venkatesh WOLFF Primary Care Provide Roderick Martinez [phone] REASON FOR VISIT screening,hx polyps Encounters Encounter Location Date Provider Diagnosis [facility] Outpatient [address] [place] [phone] 07/04/2024 Roderick Holcomb Plan Of Treatment No Information Progress Notes * JAYA ISLAS CDOB: [birth year] (74 yo F)Acc No.[id number]:07/04/2024 COLON WITH MAC Patient: JAYA MOLINA Provider: Mika Holcomb MD :1950 A ge:74 Y S ex:Female Date:07/04/2024 Address:[address] [place], [place] [phone] Pcp:Venkatesh Lindo (RETIRED )MD Subjective: * Chief Complaints: * 1 . Screening,hx polyps. * Medical History: Objective: * Vitals: Assessment: Plan: * Treatment: * * The named appointment provid er may or may not be the originator of this progress note, and it is not deemed complete until electronically signed by the appointment provider. Sign off status: Pending * Provider: Mika Holcomb MD Date: 0 07/04/2024 Generated for Chloéi velma/Famaryamg/eTransmitting on: 1 05/06/2024 11:08 AM EST
--- OUTSIDE RECORDS SUMMARY | 2024-07-25 05:30 | XMS_ITS ---
Author Organization [facility] Address [address] [place] [address] Care Team Providers Care A And P Mechanic Name Role Phone Belgica (RETIRED) , Venkatesh Primary Care Provide Roderick Martinez [phone] REASON FOR VISIT screening,hx polyps Encounters Encounter Location Date Provider Diagnosis [facility] Outpatient [address] [place], [place] [phone] 07/25/2024 Roderick Holcomb Colon cancer scree moncho [...] JAYA ISLAS CDOB: [birth year] (74 yo F)Acc No.[id number]:07/25/2024 COLON WITH MAC Patient: JAYA MOLINA Provider: Mika Holcomb MD :1950 A ge:74 Y S ex:Female Date:07/25/2024 Address[address] [facility] [address] [facility] Pcp:Venkatesh Lindo (RETIRED )MD Subjective: * Chief Complaints: * 1 . Screening,hx polyps. * Medical History: Objective: * Vitals: Assessment: * Assessment: 1. C olon cancer screening - Z12.11 (Primary) 2 . F amily history of colon cancer - Z80.0 3 . D iverticulosis of large intestine without perforation or abscess without bleeding - K57.30 4 . O ther hemorrhoids - K64.8 Plan: * Treatment: * Procedure Codes: G 0105 COLOREC CANCR SCR; COLNSCPY HI RISK, 0529F INTRVL 3+YRS PTS CLNSCP DOCD, 0528F RCMND FLW-UP 10 YRS DOCD * * The named appointment provid er may or may not be the originator of this progress note, and it is not deemed complete until electronically signed by the appointment provider. Sign off status: Pending * Provider: Mika Holcomb MD Date: 0 07/25/2024 Generated for Cristina carreon/Katy/Dickitting on: 1 05/06/2024 11:08 AM EST
--- NOTE | 2025-03-06 09:55 | A.OFFVIS_ITS ---
Intake Visit Reasons: cysto(Bladder Ca) Intake Note: Patient is Present for Follow Up Cystoscopy Urology Medication: None Antibiotic Allergies: None Blood Thinners: None URO G-HD CYSTOSCOPE LOT:[id number] EXP: 10/07/2027 Cook Mess Required: No Accompanied by: Self / Same As Patient Allergies No Known Allergies Allergy (Verified 03/06/25 10:03) HPI Comments Details: Varsha is a pleasant female. She is here for the following urologic conditions - bladder cancer - lower urinary tract symptoms Yearly follow-up Had tried Myrbetriq Here for yearly cysto Inflammation at trigone No tumor Initiate Estrace Twelve month follow-up Twelve month follow-up HbA1c 07/21 8.2 Lower urinary tract symptoms Predominate urinary urgency Background of diabetes Nocturia times 1-2, occasional 3 Prior medication tolterodine 4 mg Recommend solifenacin versus Myrbetriq Bladder cancer superficial Diagnosed a number of years ago Continues with yearly surveillance Background with diabetic diagnosis on glipizide, metformin Cystoscopy - 12/18 NAD, 12/19 NAD, 12/20 NAD Continue with surveillance yearly [facility] Medical History Osteopenia Cystitis Elevated cholesterol HTN (hypertension) Diabetes mellitus Asthma Surgical History H/O colonoscopy (~07/25/24) Status post surgical removal and fulguration of bladder neoplasm Family History Mother No problems noted. Father No problems noted. Social History Housing: House Patient Tobacco Use Status: Former Tobacco user e-Cigarette/Vaping Use: Former Use service: No Current occupational status: retired Cognitive needs: No Hearing needs: No Vision needs: Yes (rx glasses) Review of Systems Const Denies chills and Denies fever(s) Card Reports no additional complaints and Denies syncope Resp Denies cough GI Denies abdominal pain and Denies heartburn Reports as per HPI and Denies change in libido Neuro Denies syncope Psych Denies change in libido Endo Denies change in libido Physical Exam Const General: cooperative, healthy appearing, comfortable and no acute distress Orientation/consciousness: patient oriented x3 HEENT Face and sinus: Yes normal facial exam Mouth: moist mucous membranes Neck Neck: Yes normal visual inspection, Yes full ROM and Yes trachea midline Chest Chest palpation & inspection: normal inspection of the chest Resp Effort & Inspection: normal respiratory effort, able to speak in complete sentences and no respiratory distress GI Inspection: Yes normal to inspection Back/Spine/Pelvis Cervical Spine: normal cervical lordosis Thoracic/Lumbar Spine: thoracic and lumbar spine normal to inspection Skin General skin exam: no rashes or lesions noted Neuro General: patient oriented x3, gait normal, tone normal and moves all extremities Extrem General: Yes normal to inspection and Yes capillary refill normal Office Procedures Cystoscopy Consent Discussed risk and benefit or proposed procedure with the patient. Information consent for procedure given to the patient. Discussed technical aspects, risks, benefits and alternatives in full. Addressed all of the patient's questions and concerns regarding the procedure. The patient demonstrated knowledge and understanding. They wish to proceed with this procedure. Preparation The patient was prepped in the usual manner. A lead web developer was present and in the room. Genitalia was prepped with betadine solution in a sterile manner. Lidocaine Jelly 2% was placed into the urethra and 16Fr flexible Olympus cystoscope was inserted into the meatus after adequate lubrication. Procedure Meatus genitourinary syndrome Urethra normal Bladder examination with retroflexion of cystoscope Bladder Orifices normal shape and position Trigone metaplasia Bladder Capacity Normal Trabeculations Grade 0 Cellule Formation None Diverticulum Formation None Mucosal Erythema None Bladder Tumor None [id number] DISPOSABLE SCOPE URO-G FLEXIBLE SCOPE Procedure code (CPT) selection complete Office Meds lidocaine HCl 2 % mucosal jelly in applicator Performing Provider: Forest Clark MD [facility]forming [facility] [place] [facility] Administered by: Taisha Henderson RN on 03/06/25 10:16 Dose Route Admin Location Dispensed Lot Number Expiration Date ND Physical Education Professor 10 mL intra-urethral 10 mL nitrofurantoin monohydrate/macrocrystals 100 mg capsule Performing Provider: Forest Clark MD Performing Location: [facility] [place] [facility] Administered by: Taisha Henderson RN on 03/06/25 10:16 Dose Route Admin Location Dispensed Lot Number Expiration Date ND Physical Education Professor 100 mg PO 1 cap Results AMB Urinalysis, Automated UA Leukoctes 0 Reena/uL Last Edit by Marla Casanova, RMA on 03/06/25 10:12 UA Nitrite Negative Last Edit by Marla Casanova, RMA on 03/06/25 10:12 UA Urobilinogen 0.2 mg/dL Last Edit by Marla Casanova, RMA on 03/06/25 10:1 2 UA Protein 15 mg/dL Last Edit by Marla Casanova, RMA on 03/06/25 10:12 UA pH 5.5 Last Edit by Marla Casanova, RMA on 03/06/25 10:12 UA Blood 0 Ric/uL Last Edit by Marla Casanova, RMA on 03/06/25 10:12 UA Specific [place] 1.025 Last Edit by Marla Casanova, RMA on 03/06/25 10: 12 UA Ketone Negative Last Edit by Marla Casanova, RMA on 03/06/25 10:12 UA Bilirubin 1 mg/dL Last Edit by Marla Casanova, RMA on 03/06/25 10:12 UA Glucose 250 mg/dL Last Edit by Marla Casanova, RMA on 03/06/25 10:12 Results Reviewed Results Reviewed: Laboratory Last Values Urine pH (Auto) 5.5 03/06/25 10:04 Specific [place] (Auto) 1.025 03/06/25 10:04 Urine Protein (Auto) 15 mg/dL 03/06/25 10:04 Glucose (UA)(Auto) 250 mg/dL 03/06/25 10:04 Urine Ketones (Auto) Negative 03/06/25 10:04 Urine Blood (Auto) 0 Ric/uL 03/06/25 10:04 Urine Nitrite (Auto) Negative 03/06/25 10:04 Urine Bilirubin (Auto) 1 mg/dL 03/06/25 10:04 Urine Urobilinogen (Auto) 0.2 mg/dL 03/06/25 10:04 Leukocyte Esterase (Auto) 0 Reena/uL 03/06/25 10:04 Assessment & Plan Assessment & Plan (1) Overactive bladder: Code(s): N32.81 - Overactive bladder Category: Medical (2) Cystitis: Code(s): N30.90 - Cystitis, unspecified without hematuria Category: Medical (3) Bladder cancer: Comment: Low-grade Code(s): C67.9 - Malignant neoplasm of bladder, unspecified Category: Medical Qualifiers: Bladder location: unspecified site Qualified Code(s): C67.9 - Malignant neoplasm of bladder, unspecified Plan Initiate esterase Orders: Orders AMB Cystoscopy Today C67.9 - Malignant neoplasm of bladder, unspecified AMB Urinalysis Automated Today C67.9 - Malignant neoplasm of bladder, unspecified, Z13.9 - Encounter for screening, unspecified Urine Cytology Today C67.9 - Malignant neoplasm of bladder, unspecified Medications: New estradiol 0.01%(0.1mg/gram) pea-sized to urethra 3 times a week 42.5 grams 2RF 30 days N30.90 - Cystitis, unspecified without hematuria, N36.2 - Urethral caruncle, N39.0 - Urinary tract infection, site not specified, N95.2 - Postmenopausal atrophic vaginitis Patient Instructions: This note is constructed using voice recognition software. While every effort has been made to ensure accuracy mechanical cad designer errors may have been included. Imaging studies, laboratory and physical exam results were discussed and reviewed in detail. No major barriers to patient understanding were identified. An opportunity to ask questions regarding the treatment plan was provided. All questions were answered. The patient expressed understanding and agreement with the above treatment plan. The patient is aware they should contact our office by phone for worsening of their current condition or the appearance of new urologic symptoms. Compliance is encouraged with any medications and followup testing that is ordered. It is a privilege to participate in the urologic care of your patient. If you have any questions or concerns regarding treatment for the above conditions, or other urologic issues, please do not hesitate to contact me. The office telephone contact is [phone]. Sincerely, Dr Forest Clark MD, [facility] - Urology Compassionate Specialist Care for the Genitourinary System Coding Level of Care Code Est Pt Level 4 (64367) Complex EM visit Add On G2211 Diagnoses Overactive bladder N32.81 Cystitis N30.90 Malignant neoplasm of urinary bladder, unspecified site C67.9 Bladder location: unspecified site CPT Codes Cystoscopy - CPT: 04577-[id number] ([id number])
--- OUTSIDE RECORDS SUMMARY | 2025-03-06 11:08 | XMS_ITS | Patient Health Record ---
Author Organization [facility] Address [address] [place] [address] Care Team Providers Care Food Sampler Name Role Phone [employer] (RETIRED) Venkatesh WOLFF Primary Care Provide r Roderick Orellana Unavailable [phone] Allergies No Known Allergies Results Component Value Reference Range Notes Glucose, Whole Blood Reviewed date:07/25/2024 03:21:52 PM Interpretation: Performing Lab:[facility], [address] [place] [id number] Notes/Report: Glucose, Whole Blood 203 60-115 mg/dL METER # : [id number] Reason For Referral No Information Medications Medication SIG (Take, Route, Frequency, Duration) Notes Start Date End Date Status ProAir HFA 108 (90 Base) MCG/ACT 2 puffs as needed Inhalation every 6 hrs/prn Activ e glipiZIDE 5 MG TAKE TWO TABLETS BY MOUTH TWICE A DAY Oral; Duration: 30 Active metFORMIN HCl ER 500 MG Oral; Duration: 90 Active Lisinopril 5 MG Oral; Duration: 90 Active Vitamin D 2000 UNIT 1 tablet Orally Once a day Active Lovastatin 10 MG TAKE ONE TABLET BY M OUTH ONCE DAILY Oral; Duration: 90 Active Immunizations Vaccine Route Administration Date Status Comme nts Influenza Unknown 02/12/2018 Administered Influenza Unknown 03/04/2024 Administered Problems Problem Type SNOMED Code ICD Code Onset Dates Problem Status W/U Status Risk Notes Problem Screening for malignant neoplasm of colon (998391005) Encounter for screening for malignant neoplasm of colon (Z12.11) Active confirmed Problem Family History of Cancer of Colon (Situation) (993529458) Family history of colon cancer (Z80.0) Active confirmed Problem Long-term current use of drug therapy (593449672) Long-term use of high-risk medication (Z79.899) Active confirmed Vital Signs Temperature 98.0 degrees Fahrenheit 03/12/2024 Blood pressure diastolic 00 mm Hg 03/12/2024 Height 59 in 03/12/2024 Blood pressure systolic 000 mm Hg 03/12/2024 Weight 147 lb 2 oz lbs 03/12/2024 BMI 29.71 kg/m2 03/12/2024 Encounters Encounter Location Date Provider Diagnosis [facility] [place] [facility] [address] [place] [id number] 07/25/2024 Roderick Holcomb Colon cancer screeni ng Z12.11 ; Family history of colon cancer Z80.0 ; Diverticulosis of large intestine without perforation or abscess without bleeding K57.30 and Other hemorrhoids K64.8 [facility] [address] [place] [phone] 03/12/2024 Roderick Holcomb Encounter for screen ing for malignant neoplasm of colon Z12.11 ; Long-term use of high-risk medication Z79.899 and Family history of colon cancer Z80.0 [facility] [address] [place] [phone] 07/03/2024 Roderick Holcomb Assessments Encounter Date Diagnosis [...] Date MEDICARE OF [place] [address] [place] [address] [id number] JOSE [place] JAYA Self - patient is the insured [employer] CLAIMS [address] [place] [address] [id number] JOSE [place] JAYA Self - patient is the insured Medical (General) History Medical History History ICD Code Screening colonoscopies 10-10 and 2001 neg. except for hyperplastic polyps, mild diverticulosis, and small internal hemorrhoids Asthma Denies MT,CVA,renal disease NIDDM Negative screening colonoscopy in and 05/2018 Hypercholesterolemia Surgical History Surgery Date(Month/Year) Benign tumor removed from bladder---cyst oscopy
== END 2025-03-06 10:37 | disposition home or self-care (01) ==
LOC: HO.HUSH 09:45
PROVIDERS: PCP Internal Medicine; Visit Provider Urology
DX: N32.81 Overactive bladder (principal); N30.90 Cystitis, unspecified without hematuria; C67.9 Malignant neoplasm of bladder, unspecified; Z13.9 Encounter for screening, unspecified
CPT/HCPCS: 52000

== ENCOUNTER 2025-03-06 09:44 | Outpatient (REF) | payer MEDICARE, SELFPAY | END 2025-03-06 09:45 | disposition home or self-care (01) | LOC: HO.LAB 09:44 | PROVIDERS: PCP Internal Medicine; Visit Provider Urology | DX: N32.81 Overactive bladder (principal); C67.9 Malignant neoplasm of bladder, unspecified; N30.90 Cystitis, unspecified without hematuria | CPT/HCPCS: 52000; 81003; 88112 ==

== ENCOUNTER 2025-04-28 10:27 | Outpatient (REF) | payer MEDICARE, SELFPAY ==
--- OUTSIDE RECORDS SUMMARY | 2024-07-04 05:30 | XMS_ITS ---
Author Organization [facility] Address [address] [place] [address] Care Team Providers Care Produce Clerk Name Role Phone Belgica (RETIRED) Venkatesh WOLFF Primary Care Provide Roderick Martinez [phone] REASON FOR VISIT screening,hx polyps Encounters Encounter Location Date Provider Diagnosis [facility] Outpatient [address] [place] [phone] 07/04/2024 Roderick Holcomb Plan Of Treatment No Information Progress Notes * JAYA ISLAS CDOB: [birth year] (75 yo F)Acc No.[id number]:07/04/2024 COLON WITH MAC Patient: JAYA MOLINA Provider: Mika Holcomb MD :1950 A ge:74 Y S ex:Female Date:07/04/2024 Address:[address] [place], [place] [id number] Pcp:Venkatesh Lindo (RETIRED )MD Subjective: * Chief Complaints: * S creening,hx polyps * The named appointment provid er may or may not be the originator of this progress note, and it is not deemed complete until electronically signed by the appointment provider. Sign off status: Pending * Provider: Mika Holcomb MD Date: 0 07/04/2024 Generated for Cristina carreon/Fahomar/eTransmitting on: 1 01:58 PM EST
--- OUTSIDE RECORDS SUMMARY | 2024-07-25 05:30 | XMS_ITS ---
Author Organization [facility] Address [address] [place] [address] Care Team Providers Care Sample Patternmaker Name Role Phone Belgica (RETIRED) , Venkatesh Primary Care Provide Roderick Martinez [phone] REASON FOR VISIT screening,hx polyps Encounters Encounter Location Date Provider Diagnosis [facility] [place] [address] [place], [place] [phone] 07/25/2024 Roderick Holcomb Colon cancer scree moncho Z12.11 ; Family history of colon cancer Z80.0 ; Diverticulosis of large intestine without perforation or abscess without bleeding K57.30 and Other hemorrhoids K64.8 Assessments Encounter Date Diagnosis (ICD Code) Assessment Notes Treatment Notes Treatment Clinical Notes Section Notes 07/25/2024 Colon cancer screening (ICD-10 - Z12.11) 07/25/2024 Family history of colon cancer (ICD-10 - Z80.0) 07/25/2024 Diverticulosis of large intestine without perforation or abscess without bleeding (ICD-10 - K57.30) 07/25/2024 Other hemorrhoids (ICD-10 - K64.8) Plan Of Treatment No Information Progress Notes * JAYA ISLAS CDOB: [birth year] (75 yo F)Acc No.[id number]:07/25/2024 COLON WITH MAC Patient: JAYA MOLINA Provider: Mika Holcomb MD :1950 A ge:74 Y S ex:Female Date:07/25/2024 Address:[address] [facility] [address] [facility] Pcp:Venkatesh Lindo (RETIRED )MD Subjective: * Chief Complaints: * S creening,hx polyps Assessment: * Assessment: 1. C olon cancer screening - Z12.11 (Primary) 2 . F amily history of colon cancer - Z80.0 3 . D iverticulosis of large intestine without perforation or abscess without bleeding - K57.30 4 . O ther hemorrhoids - K64.8 Plan: * Procedure Codes: G 0105 COLOREC CANCR SCR; COLNSCPY HI [id number] INTRVL 3+YRS PTS CLNSCP [id number] RCMND FLW-UP 10 YRS DOCD Billing Information: * Procedure Codes: G0105 COLOREC CANCR SCR; COLNSCPY HI RISK. 0529F INTRVL 3+YRS PTS CLNSCP DOCD. 0528F RCMND FLW-UP 10 YRS DOCD. * The named appointment provid er may or may not be the originator of this progress note, and it is not deemed complete until electronically signed by the appointment provider. Sign off status: Pending * Provider: Mika Holcomb MD Date: 0 07/25/2024 Generated for Cristina carreon/Katy/Albertsmitting on: 1 01:58 PM EST
--- OUTSIDE RECORDS SUMMARY | 2025-04-28 13:58 | XMS_ITS | Patient Health Record ---
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 Role Phone [employer] (RETIRED) Venkatesh WOLFF Primary Care Provide r Roderick Orellana [phone] Allergies No Known Allergies Results Component Value Reference Range Flag Notes Glucose, Whole Blood Reviewed date:07/25/2024 03:21:52 PM Interpretation: Performing Lab:[facility], [address] [place] [id number] Notes/Report: Glucose, Whole Blood 203 60-115 mg/dL H SD TER #: [id number] Reason For Referral No Information Medications Medication SIG (Take, Route, Frequency, Duration) Notes Start Date End Date Status ProAir HFA 108 (90 Base) MCG/ACT Aerosol Solution 2 puffs as needed Inhalation every 6 hrs/prn Activ e glipiZIDE 5 MG Tablet TAKE TWO TABLETS B Y MOUTH TWICE A DAY Oral; Duration: 30 Active metFORMIN HCl ER 500 MG Tablet Extended Release 24 Hour Oral; Duration: 90 Active Lisinopril 5 MG Tablet Oral; Duration: 90 Active Vitamin D 2000 UNIT Tablet 1 tablet Orally Once a day Active Lovastatin 10 MG Tablet TAKE ONE TABLET BY MOUTH ONCE DAILY Oral; Duration: 90 Active Immunizations Vaccine Route Administration Date Status Comme nts Influenza Unknown 02/12/2018 Administered Influenza Unknown 03/04/2024 Administered Social History Social History Additional Details Category Social Info Options Details Miscellaneous: Marital status: Occupation: Retired from [employer] Notes: Nonsmoker > 10 yrs; no sig. alcohol Nonsmoker > 10 yrs; no sig. alcohol Nonsmoker > 10 yrs; no sig. alcohol Problems Problem Type SNOMED Code ICD Code Onset Dates Problem Status W/U Status Risk Notes Problem Screening for malignant neoplasm of colon (496727144) Encounter for screening for malignant neoplasm of colon (Z12.11) Active confirmed Problem Family History of Cancer of Colon (Situation) (476630147) Family history of colon cancer (Z80.0) Active confirmed Problem Long-term current use of drug therapy (688824211) Long-term use of high-risk medication (Z79.899) Active confirmed Encounters Encounter Location Date Provider Diagnosis [facility] [place] [address] [phone] 07/25/2024 Roderick Holcomb Colon cancer screeni ng Z12.11 ; Family history of colon cancer Z80.0 ; Diverticulosis of large intestine without perforation or abscess without bleeding K57.30 and Other hemorrhoids K64.8 [facility] [address] [place] [address] 07/03/2024 Roderick Holcomb Assessments Encounter Date Diagnosis [...] Date MEDICARE OF [place] [address] [facility] [place] [address] [id number] ANUJAYA Dorsey Self - patient is the insured [employer] ATT[employer] CLAIMS [address] [place] [address] [phone] [id number] ANUJAYA Dorsey Self - patient is the insured Medical (General) History Medical History History ICD Code Screening colonoscopies 10-10 and 2001 neg. 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
[2025-04-28 14:36] LABS: Anion Gap 10 (12-20); Blood Urea Nitrogen 26 mg/dL (9-16); Calcium 9.7 mg/dL (8.4-10.2); Carbon Dioxide 30 mmol/L (22-29); Chloride 105 mmol/L (96-108); Estimated Glomerular Filt Rate 53; Potassium 4.1 mmol/L (3.3-5.1); Sodium 141 mmol/L (135-145)
[2025-04-28 14:42] LABS: Microalbum/Creatinine Ratio Ur 3.6 ug/mg cr (<30)
== END 2025-04-28 10:28 | disposition home or self-care (01) ==
LOC: HO.HMGCLDS 10:27
PROVIDERS: PCP Physician Assistant; Visit Provider Physician Assistant
DX: E11.9 Type 2 diabetes mellitus without complications (principal); I10 Essential (primary) hypertension; E78.5 Hyperlipidemia, unspecified; C67.9 Malignant neoplasm of bladder, unspecified
CPT/HCPCS: 36415; 80048; 82043; 82570; 83036